=== PATIENT | male | born 1940 | race Caucasian/White ===

== ENCOUNTER 2017-05-25 12:15 | Outpatient (CLI) | payer MEDICARE, OTHER | END 2017-05-25 12:16 | disposition home or self-care (01) | LOC: DI 12:15 | PROVIDERS: ATTEND Family Medicine | DX: R60.0 Localized edema (principal) | CPT/HCPCS: 93306 ==

== ENCOUNTER 2017-07-05 11:57 | Outpatient (CLI) | payer MEDICARE, OTHER ==
[2017-07-05 19:58] LABS: CALCIUM 9.3 mg/dL (8.5-10.3); CREATININE 1.7 mg/dL (0.6-1.2); POTASSIUM 4.1 mmol/L (3.5-5.0)
== END 2017-07-05 11:58 | disposition home or self-care (01) ==
LOC: LAB.WCP 11:57
PROVIDERS: ATTEND Family Medicine
DX: E87.5 Hyperkalemia (principal); R60.0 Localized edema; E87.1 Hypo-osmolality and hyponatremia; I10 Essential (primary) hypertension; N28.9 Disorder of kidney and ureter, unspecified
CPT/HCPCS: 36415; 80048

== ENCOUNTER 2018-12-26 08:00 | Outpatient (CLI) | payer MEDICARE, OTHER ==
[2018-12-26 18:57] LABS: BASOPHILS % (AUTO) 0.9 %; EOSINOPHILS # (AUTO) 0.3 10^3/uL (0.0-0.7); EOSINOPHILS % (AUTO) 5.3 %; HGB - HEMOGLOBIN 13.1 g/dL (14.0-18.0); LYMPHOCYTES # (AUTO) 0.8 10^3/uL (1.5-3.5); MEAN CORPUSCULAR HEMOGLOBIN 33.1 pg (27.0-31.0); MEAN CORPUSCULAR HGB CONC 33.6 g/dL (32.0-36.0); MEAN CORPUSCULAR VOLUME 98.5 fL (80.0-94.0); MONOCYTES # (AUTO) 0.8 10^3/uL (0.0-1.0); NEUTROPHILS # (AUTO) 3.5 10^3/uL (1.5-6.6); NEUTROPHILS % (AUTO) 65.8 %; PLT - PLATELET COUNT 149 10^3/uL (130-450); RED BLOOD COUNT 3.97 10^6/uL (4.70-6.10); RED CELL DISTRIBUTION WIDTH 14.3 % (12.0-15.0); WHITE BLOOD COUNT 5.4 x10^3/uL (4.8-10.8)
[2018-12-26 19:11] LABS: BILIRUBIN,URINE NEGATIVE (NEGATIVE); GLUCOSE, URINE (UA) NEGATIVE (NEGATIVE); KETONES,URINE (UA) NEGATIVE (NEGATIVE); LEUKOCYTE ESTERASE, URINE NEGATIVE (NEGATIVE); NITRITE,URINE POSITIVE (NEGATIVE); OCCULT BLOOD,URINE NEGATIVE (NEGATIVE); PROTEIN,URINE NEGATIVE (NEGATIVE); UROBILINOGEN,URINE 0.2 (NORMAL) E.U./dL (NORMAL)
[2018-12-26 19:12] LABS: ALBUMIN 3.7 g/dL (3.2-5.5); ALBUMIN/GLOBULIN RATIO 1.2 (1.0-2.2); ALKALINE PHOSPHATASE 48 IU/L (42-121); ALT ALANINE AMINOTRANSFERASE 22 IU/L (10-60); AST ASPARTATE AMINOTRANSFERASE 25 IU/L (10-42); BILIRUBIN,TOTAL 0.8 mg/dL (0.2-1.0); BUN - BLOOD UREA NITROGEN 21 mg/dL (6-20); CALCIUM 9.1 mg/dL (8.5-10.3); CARBON DIOXIDE - CO2 23 mmol/L (21-32); CHLORIDE 101 mmol/L (101-111); CHOL/HDL RATIO 3.1 (<5.0); CHOLESTEROL 107 mg/dL; CREATININE 1.1 mg/dL (0.6-1.2); GFR - MDRD 65 (>89); GLUCOSE 107 mg/dL (70-100); HDL CHOLESTEROL 34 mg/dL; LDL CHOLESTEROL,CALCULATED 41 mg/dL; LDL/HDL RATIO 1.2 (<3.6); SODIUM 133 mmol/L (135-145); TOTAL PROTEIN 6.9 g/dL (6.7-8.2); VLDL CHOLESTEROL 32 mg/dL
[2018-12-26 19:39] LABS: BACTERIA,URINE Few /HPF (None Seen); CLARITY,URINE CLEAR (CLEAR); RBC,URINE 0-5 /HPF (0-5); SQUAMOUS EPITHELIAL CELL,UR RARE Squamous (<= Few)
== END 2018-12-26 23:59 | disposition home or self-care (01) ==
LOC: LAB.WCP 08:00
PROVIDERS: ATTEND Family Medicine
DX: I10 Essential (primary) hypertension (principal); N28.9 Disorder of kidney and ureter, unspecified; E78.5 Hyperlipidemia, unspecified; R31.9 Hematuria, unspecified
CPT/HCPCS: 36415; 80053; 80061; 81001; 81003; 83721; 84443; 85025; 87086; 87181

== ENCOUNTER 2019-03-19 11:21 | Outpatient (CLI) | payer MEDICARE, OTHER ==
[2019-03-19 18:51] LABS: BASOPHILS # (AUTO) 0.1 10^3/uL (0.0-0.1); BASOPHILS % (AUTO) 0.9 %; EOSINOPHILS # (AUTO) 0.2 10^3/uL (0.0-0.7); EOSINOPHILS % (AUTO) 2.7 %; HGB - HEMOGLOBIN 13.8 g/dL (14.0-18.0); LYMPHOCYTES # (AUTO) 0.8 10^3/uL (1.5-3.5); LYMPHOCYTES % (AUTO) 13.6 %; MEAN CORPUSCULAR HEMOGLOBIN 32.8 pg (27.0-31.0); MEAN CORPUSCULAR HGB CONC 33.7 g/dL (32.0-36.0); MEAN CORPUSCULAR VOLUME 97.4 fL (80.0-94.0); MEAN PLATELET VOLUME 9.4 fL (7.4-11.4); MONOCYTES # (AUTO) 0.6 10^3/uL (0.0-1.0); MONOCYTES % (AUTO) 10.3 %; NEUTROPHILS # (AUTO) 4.4 10^3/uL (1.5-6.6); NEUTROPHILS % (AUTO) 72.5 %; PLT - PLATELET COUNT 135 10^3/uL (130-450); RED BLOOD COUNT 4.22 10^6/uL (4.70-6.10); RED CELL DISTRIBUTION WIDTH 13.4 % (12.0-15.0); WHITE BLOOD COUNT 6.1 x10^3/uL (4.8-10.8)
[2019-03-19 18:57] LABS: ALBUMIN 4.2 g/dL (3.2-5.5); ALBUMIN/GLOBULIN RATIO 1.4 (1.0-2.2); CALCIUM 9.5 mg/dL (8.5-10.3); CREATININE 1.2 mg/dL (0.6-1.2); TOTAL PROTEIN 7.2 g/dL (6.7-8.2)
== END 2019-03-19 11:22 | disposition home or self-care (01) ==
LOC: LAB.WCP 11:21
PROVIDERS: ATTEND Physician Assistant
DX: E87.5 Hyperkalemia (principal); N39.0 Urinary tract infection, site not specified
CPT/HCPCS: 36415; 80053; 85025; 87086; 87181

== ENCOUNTER 2019-05-10 17:49 | Emergency (ER) | payer MEDICARE, OTHER ==
[2019-05-10] MEDS ORDERED: SODIUM CHLORIDE 0.9% 1,000 ML IV ONE (18:49)
[2019-05-10 19:04] LABS: BILIRUBIN,URINE NEGATIVE (NEGATIVE); CLARITY,URINE HAZY (CLEAR); GLUCOSE, URINE (UA) NEGATIVE (NEGATIVE); KETONES,URINE (UA) NEGATIVE (NEGATIVE); LEUKOCYTE ESTERASE, URINE MODERATE (NEGATIVE); NITRITE,URINE POSITIVE (NEGATIVE); OCCULT BLOOD,URINE SMALL (NEGATIVE); PROTEIN,URINE TRACE mg/dL (NEGATIVE); UROBILINOGEN,URINE 0.2 (NORMAL) E.U./dL (NORMAL)
[2019-05-10] MEDS ORDERED: IOVERSOL 320 100 ML VIAL IVP ONE (19:04)
[2019-05-10] MEDS ORDERED: HYDROcod/ACETAM 10 MG/325 MG TABLET PO STA (19:06)
[2019-05-10 19:16] LABS: BACTERIA,URINE Many /HPF (None Seen); RBC,URINE 0-5 /HPF (0-5); SQUAMOUS EPITHELIAL CELL,UR NONE SEEN (<= Few)
[2019-05-10] MEDS ORDERED: cefTRIAXone 1 GM in SODIUM CHLORIDE 0.9% MINIBAG 100 ML IV STA (19:26)
[2019-05-10 19:30] LABS: BASOPHILS # (AUTO) 0.1 10^3/uL (0.0-0.1); BASOPHILS % (AUTO) 0.5 %; EOSINOPHILS # (AUTO) 0.1 10^3/uL (0.0-0.7); EOSINOPHILS % (AUTO) 1.3 %; HGB - HEMOGLOBIN 14.1 g/dL (14.0-18.0); LYMPHOCYTES # (AUTO) 0.6 10^3/uL (1.5-3.5); LYMPHOCYTES % (AUTO) 5.8 %; MEAN CORPUSCULAR HEMOGLOBIN 32.5 pg (27.0-31.0); MEAN CORPUSCULAR HGB CONC 34.1 g/dL (32.0-36.0); MEAN CORPUSCULAR VOLUME 95.3 fL (80.0-94.0); MEAN PLATELET VOLUME 7.6 fL (7.4-11.4); NEUTROPHILS # (AUTO) 8.9 10^3/uL (1.5-6.6); NEUTROPHILS % (AUTO) 83.4 %; PLT - PLATELET COUNT 146 10^3/uL (130-450); RED BLOOD COUNT 4.33 10^6/uL (4.70-6.10); RED CELL DISTRIBUTION WIDTH 13.8 % (12.0-15.0); WHITE BLOOD COUNT 10.7 x10^3/uL (4.8-10.8)
[2019-05-10 19:48] LABS: ALBUMIN 4.2 g/dL (3.2-5.5); ALBUMIN/GLOBULIN RATIO 1.3 (1.0-2.2); BILIRUBIN,TOTAL 0.8 mg/dL (0.2-1.0); CALCIUM 9.2 mg/dL (8.5-10.3); TOTAL PROTEIN 7.5 g/dL (6.7-8.2)
[2019-05-10] MEDS ORDERED: ONDANSETRON 4 MG/2 ML VIAL IVP STA (20:06)
[2019-05-10 20:08] LABS: CREATININE 1.3 mg/dL (0.6-1.2)
--- NOTE | 2019-05-10 20:49 | CT Report ---
Reason: right flank pain Procedure Date: 05/10/2019 Accession Number: [id number] / [id number] Procedure: CT - Abdomen/Pelvis WO CPT Code: FULL RESULT: EXAM: CT ABDOMEN AND PELVIS (CT KUB) EXAM DATE: 05/10/2019 07:44 PM. CLINICAL HISTORY: Right flank pain. COMPARISONS: ABDOMEN/PELVIS W/O 06/14/2015 7:20 PM. TECHNIQUE: Routine axial helical CT imaging was performed through the abdomen and pelvis without IV contrast. Reconstructions: Coronal and sagittal. In accordance with CT protocol optimization, one or more of the following dose reduction techniques were utilized for this exam: automated exposure control, adjustment of mA and/or KV based on patient size, or use of iterative reconstructive technique. FINDINGS: Lung Bases: Linear opacities present about the right greater than left lung bases increased since last exam suggesting chronic scarring or possibly atelectasis. The lungs appear hyperinflated with narrowing of the mediastinum. No acute opacities identified. Right Kidney/Ureter: New acute moderate right hydronephrosis and hydroureter present with acute perinephric edema. The renal pelvis is now dilated to 4.1 cm. No intrarenal or ureteral calculi identified. Some mucosal thickening present about the ureter as well. Left Kidney/Ureter: The left kidney demonstrates mild hydronephrosis and hydroureter diffusely through the distal ureter also increased since last exam. The renal pelvis is dilated to 1.9 cm from 1.3 cm previously. Mild perinephric edema slightly increased. Several renal cysts are likely present including a hyperdense focus about the lower pole measuring 30 HU. Other Solid Organs: The liver, spleen, and adrenal glands are unremarkable. The pancreatic tail is either absent or poorly formed. The proximal to mid pancreas is within normal limits without ductal dilatation. Gallbladder/Bile Ducts: Several small gallbladder stones are present increased since last exam. No evidence for acute cholecystitis or biliary obstruction. Peritoneal Cavity: Diffuse colonic diverticulosis present. No bowel obstruction or acute inflammatory process evident. No free fluid or free air evident. An ileal conduit is present in the right lower quadrant with loops measuring up to 3.1 cm increased from 2.2 cm on prior exam. A focal stricture is not clearly identified however. Pelvic Organs: The bladder is surgically absent as before. Surgical anastomoses present in the lower pelvis. Multiple pelvic sidewall surgical clips present. No adenopathy or mass lesion clearly identified. Vasculature: Unremarkable. Other: Posterior spinal fusion hardware spans the L4-S1 level. L2 level degenerative disk disease present. No bony lesion or fracture evident. IMPRESSION: 1. New moderate right and mild left hydronephrosis and hydroureter extending to the right lower quadrant ileal conduit though no obstructing stone or mass clearly identified. The ileal conduit is slightly more prominent through the urostomy site compared to last exam but a focal stricture is not clearly identified. 2. Diffuse colonic diverticulosis without evidence of diverticulitis or bowel obstruction. 3. Status post cystectomy with extensive postsurgical changes in the pelvis. No mass or adenopathy appreciated. RADIA
[2019-05-10] MEDS ORDERED: HYDROcod/ACETAM 5/325 MG TABLET PO STA (22:09)
--- NOTE | 2019-05-10 22:11 | ED Physician Documentation ---
PD HPI ABD PAIN - Stated complaint Stated Complaint: RT SIDE PX/NAUSEA - Chief complaint Chief Complaint: Abd Pain - History obtained from History obtained from: Patient, Family - History of Present Illness Timing - onset: How many days ago (2) Timing - duration: Days Timing - details: Gradual onset Quality: Aching, Sharp, Pain Location: Suprapubic, Other (Right flank) Radiation: Right flank Improved by: Meds (vicodin) Worsened by: Moving, Palpation Associated symptoms: No: Fever, Nausea, Vomiting, Hematemesis, Diarrhea, Dysuria, Hematuria, Chest pain, Dizzy, Near syncope / syncope Similar symptoms before: Diagnosis (similar to prior UTIs) Recently seen: Clinic - Treatment prior to arrival Treatment prior to arrival: vicodin - Additional information Additional information: 79 y/o pt with hx of ileoconduit Review of Systems Ten Systems: 10 systems reviewed and negative Constitutional: reports: Fatigue. denies: Fever, Chills Cardiac: denies: Chest pain / pressure Respiratory: denies: Dyspnea GI: reports: Abdominal Pain, Nausea. denies: Vomiting Skin: reports: Reviewed and negative Musculoskeletal: reports: Back pain Neurologic: reports: Generalized weakness Immunocompromised: reports: Reviewed and negative PD PAST MEDICAL HISTORY - Past Medical History Cardiovascular: Hypertension Respiratory: None Neuro: None Endocrine/Autoimmune: None GI: Chronic constipation, Diverticulitis : Renal insuffiency, Other HEENT: None Musculoskeletal: Osteoarthritis, Chronic back pain Derm: Other Other Past Medical History: right urostomy - Past Surgical History Past Surgical History: Yes General: Bowel surgery Ortho: Spine surgery Derm: Skin cancer surgery - Present Medications Home Medications: Ambulatory Orders Medication Instructions Recorded Confirmed Atenolol 100 mg PO DAILY 04/16/15 06/04/16 Atorvastatin [Lipitor] 20 mg PO QPM 04/16/15 06/04/16 Hydrocodone/Acetaminophen [[place] 1 each PO Q6H PRN #15 tablet 06/04/16 5-325 Tablet] Amlodipine Besylate 1 tab DAILY 05/10/19 05/10/19 Fluticasone [Flonase] 1 spray DAILY 05/10/19 05/10/19 Furosemide [Lasix] 20 mg DAILY 05/10/19 05/10/19 Lidocaine 1 each TP BID 05/10/19 05/10/19 Sennosides [Senna Lax] 2 tab BID 05/10/19 05/10/19 - Allergies Allergies/Adverse Reactions: Allergies Allergy/AdvReac Type Severity Reaction Status Date / Time hydralazine Allergy Unknown Verified 05/10/19 18:49 oxycodone Allergy Unknown Verified 05/10/19 18:49 diphenhydramine HCl * AdvReac Hallucinati Verified 05/10/19 18:49 [From Benadryl] ons morphine AdvReac Hallucinati Verified 05/10/19 18:49 ons - Social History Does the pt smoke?: No Smoking Status: Never smoker Does the pt drink ETOH?: Yes Does the pt have substance abuse?: No - Immunizations Immunizations are current?: Yes - POLST Patient has POLST: No PD ED PE NORMAL - Vitals Vital signs reviewed: Yes - General General: Alert and oriented X 3, No acute distress, Other (appears uncomfortable ) - HEENT HEENT: Atraumatic, Moist mucous membranes, Pharynx benign - Neck Neck: Supple, no meningeal sign, No JVD - Cardiac Cardiac: RRR, No murmur, No gallop, No rub, Strong equal pulses - Respiratory Respiratory: No respiratory distress, Clear bilaterally - Abdomen Abdomen: Soft, Non distended, Other (Right flank tenderness and diffuse mid abdominal tenderness ) - Male Male : Deferred - Rectal Rectal: Deferred - Back Back: Other (right CVA tenderness that is moderate ) - Derm Derm: Normal color, No rash - Extremities Extremities: No deformity, Other (LLE edema pt reports is chronic ) - Neuro Neuro: Alert and oriented X 3 Eye Opening: Spontaneous Motor: Obeys Commands Verbal: Oriented GCS Score: 15 - Psych Psych: Normal mood, Normal affect PD ED PE EXPANDED - Abdomen Abdomen: Other (ileostomy bag in place iwth urine in the bag which is clear, nonbloody. stoma is patent) Results - Vitals Vitals: Vital Signs - 24 hr 05/10/19 05/10/19 05/10/19 17:59 20:03 21:43 Temperature 36.6 C 36.9 C 38.1 C H Heart Rate 87 98 100 Respiratory 18 20 18 Rate Blood Pressure 161/78 H 146/76 H 146/70 H O2 Saturation 97 95 93 Oxygen O2 Source Room air - Labs Labs: Laboratory Tests 05/10/19 05/10/19 05/10/19 18:30 19:23 19:23 WBC 10.7 RBC 4.33 L Hgb 14.1 Hct 41.3 L MCV 95.3 H MCH 32.5 H MCHC 34.1 RDW 13.8 Plt Count 146 MPV 7.6 Neut # (Auto) 8.9 H Lymph # (Auto) 0.6 L [place] # (Auto) 1.0 Eos # (Auto) 0.1 Baso # (Auto) 0.1 Absolute Nucleated RBC 0.00 Nucleated RBC % 0.0 Sodium 135 Potassium 3.6 Chloride 101 Carbon Dioxide 19 L Anion Gap 15.0 H BUN 20 Creatinine 1.3 H Estimated GFR (MDRD) 53 L Glucose 109 H Calcium 9.2 Total Bilirubin 0.8 AST 25 ALT 18 Alkaline Phosphatase 62 Total Protein 7.5 Albumin 4.2 Globulin 3.3 Albumin/Globulin Ratio 1.3 Lipase 34 Urine Color YELLOW Urine Clarity HAZY Urine pH 6.0 Ur Specific [place] <=1.005 Urine Protein TRACE Urine Glucose (UA) NEGATIVE Urine Ketones NEGATIVE Urine Occult Blood SMALL H Urine Nitrite POSITIVE H Urine Bilirubin NEGATIVE Urine Urobilinogen 0.2 (NORMAL) Ur Leukocyte Esterase MODERATE H Urine RBC 0-5 Urine WBC >25 H Ur Squamous Epith Cells NONE SEEN Urine Bacteria Many H Ur Microscopic Review INDICATED Urine Culture Comments INDICATED PD MEDICAL DECISION MAKING - ED course Complexity details: reviewed results, re-evaluated patient, considered differential, d/w patient, d/w family ED course: ddx- UTI, pyelonephritis, hydronephrosis, obstructed ileostomy/ileoconduit, sepsis, perinephric abscess. 79 y/o with hx of bladder cancer, ileoconduit and ileostomy in place. Pt reports severe pain, general weakness, unable to get around the house. He has a UTI on CT with perinephric edema, hydroneprhsois, no obvious obstruction (stoma patent on my exam). Consulted Urology at [facility] who feel pt can be managed with IV antibiotics but hospitalist at [facility] feels pt needs Urological consultation available in case of any worsening. Pt was given ceftriaxone, fluids, analgesicc here and will need admission. Given refusal by Dr. Yang here pt transferred to [facility] for admission by Dr. Jose Juan Givens. Departure - Departure Disposition: 01 Home, Self Care Clinical Impression: Pyelonephritis, Pyelonephritis, acute Urinary tract infection Qualifiers: Urinary tract infection type: acute pyelonephritis Qualified Code(s): N10 - Acute pyelonephritis Hydronephrosis Qualifiers: Hydronephrosis type: unspecified Qualified Code(s): N13.30 - Unspecified hydronephrosis Condition: Fair Record reviewed to determine appropriate education?: Yes
[2019-05-11] MEDS ORDERED: ONDANSETRON 4 MG/2 ML VIAL IVP STA (00:38)
[2019-05-11 00:49] VITALS: BP 130/68
== END 2019-05-11 01:03 | disposition short-term general hospital (02) ==
LOC: ED 17:49
DX: N10 Acute pyelonephritis (principal); N13.30 Unspecified hydronephrosis; Z93.6 Other artificial openings of urinary tract status; Z85.51 Personal history of malignant neoplasm of bladder; I10 Essential (primary) hypertension; Z87.19 Personal history of other diseases of the digestive system
CPT/HCPCS: 36415; 74176; 80053; 81001; 83690; 85025; 87077; 87086; 87181; 96365; 96375; 96376; 99284; A9270; 81003

== ENCOUNTER 2019-07-03 14:00 | Outpatient (CLI) | payer MEDICARE, OTHER | END 2019-07-03 23:59 | disposition home or self-care (01) | LOC: LAB.R 14:00 | PROVIDERS: ATTEND Physician Assistant Medical | DX: R10.32 Left lower quadrant pain (principal) | CPT/HCPCS: 87086; 87181 ==

== ENCOUNTER 2019-07-19 15:30 | Outpatient (CLI) | payer MEDICARE, OTHER ==
[2019-07-19 19:00] LABS: ALBUMIN 4.1 g/dL (3.2-5.5); ALBUMIN/GLOBULIN RATIO 1.2 (1.0-2.2); BILIRUBIN,TOTAL 0.6 mg/dL (0.2-1.0); CALCIUM 9.2 mg/dL (8.5-10.3); CREATININE 1.4 mg/dL (0.6-1.2); TOTAL PROTEIN 7.5 g/dL (6.7-8.2)
== END 2019-07-19 23:59 ==
LOC: LAB.N 15:30
PROVIDERS: ATTEND Family Medicine
DX: E87.1 Hypo-osmolality and hyponatremia (principal)
CPT/HCPCS: 36415; 80053

== ENCOUNTER 2019-08-20 11:51 | Outpatient (CLI) | payer MEDICARE, OTHER | END 2019-08-20 11:52 | disposition short-term general hospital (02) | LOC: EMS 11:51 | PROVIDERS: ATTEND Surgery | DX: R07.9 Chest pain, unspecified (principal) | CPT/HCPCS: A0425; A0427 ==

== ENCOUNTER 2019-08-29 15:31 | Outpatient (CLI) | payer MEDICARE, OTHER ==
[2019-08-29 18:42] LABS: MEAN CORPUSCULAR HEMOGLOBIN 32.5 pg (27.0-31.0); MEAN CORPUSCULAR HGB CONC 34.4 g/dL (32.0-36.0); MEAN CORPUSCULAR VOLUME 94.4 fL (80.0-94.0); MEAN PLATELET VOLUME 10.2 fL (7.4-11.4); RED BLOOD COUNT 4.31 10^6/uL (4.70-6.10); WHITE BLOOD COUNT 8.3 x10^3/uL (4.8-10.8)
[2019-08-29 18:59] LABS: ALBUMIN 4.3 g/dL (3.2-5.5); ALBUMIN/GLOBULIN RATIO 1.3 (1.0-2.2); ALKALINE PHOSPHATASE 38 IU/L (42-121); ALT ALANINE AMINOTRANSFERASE 32 IU/L (10-60); AST ASPARTATE AMINOTRANSFERASE 29 IU/L (10-42); BILIRUBIN,TOTAL 0.6 mg/dL (0.2-1.0); BUN - BLOOD UREA NITROGEN 29 mg/dL (6-20); CARBON DIOXIDE - CO2 24 mmol/L (21-32); CHLORIDE 100 mmol/L (101-111); CREATININE 1.1 mg/dL (0.6-1.2); GFR - MDRD 65 (>89); GLUCOSE 78 mg/dL (70-100); SODIUM 133 mmol/L (135-145); TOTAL PROTEIN 7.5 g/dL (6.7-8.2); URIC ACID 5.8 mg/dL (2.6-7.2)
[2019-08-29 19:05] LABS: CRP - C-REACTIVE PROTEIN < 1.0 mg/dL (0-1.0)
[2019-08-29 19:15] LABS: RHEUMATOID FACTOR NEGATIVE (Negative)
[2019-09-03 11:26] LABS: ANA SCREEN NEGATIVE (NEGATIVE)
== END 2019-08-29 23:59 | disposition home or self-care (01) ==
LOC: LAB.N 15:31
PROVIDERS: ATTEND Family Medicine
DX: M25.572 Pain in left ankle and joints of left foot (principal); E87.1 Hypo-osmolality and hyponatremia
CPT/HCPCS: 36415; 80053; 84550; 85027; 85651; 86038; 86140; 86200; 86430

== ENCOUNTER 2019-08-29 15:33 | Outpatient (CLI) | payer MEDICARE, OTHER ==
--- NOTE | 2019-08-29 15:43 | XRAY Report ---
Reason: L ankle pain Procedure Date: 08/29/2019 Accession Number: [id number] / [id number] Procedure: XRN - Ankle 2 View LT CPT Code: FULL RESULT: EXAM: LEFT ANKLE RADIOGRAPHY EXAM DATE: 08/29/2019 03:29 PM. CLINICAL HISTORY: Left ankle pain. COMPARISON: None. TECHNIQUE: 2 views. FINDINGS: Bones: An AP and lateral view were obtained. No oblique view was taken. No definite fracture allowing for bony overlap. See below recommendations. Severe hallux valgus deformity. Intertarsal osteoarthritis of the mid foot seen on lateral view. Moderate posterior calcaneal bone spur. Joints: Normal. No effusion. No subluxations. The ankle mortise is normally aligned. Soft Tissues: Normal. No soft tissue swelling. IMPRESSION: No definite fracture. See above comments. If the patient has continued symptoms, recommend short-term follow-up 3 view ankle series. RADIA
== END 2019-08-29 15:34 | disposition home or self-care (01) ==
LOC: DI.N 15:33
PROVIDERS: ATTEND Family Medicine
DX: M25.572 Pain in left ankle and joints of left foot (principal); M77.32 Calcaneal spur, left foot; M20.12 Hallux valgus (acquired), left foot; M19.072 Primary osteoarthritis, left ankle and foot; E87.1 Hypo-osmolality and hyponatremia
CPT/HCPCS: 36415; 80053; 84550; 85027; 85651; 86038; 86140; 86200; 86430

== ENCOUNTER 2019-09-03 10:19 | Outpatient (CLI) | payer MEDICARE, OTHER | END 2019-09-03 23:59 | disposition short-term general hospital (02) | LOC: EMS 10:19 | PROVIDERS: ATTEND Surgery | DX: R10.30 Lower abdominal pain, unspecified (principal); R51 Headache | CPT/HCPCS: A0425; A0429; A0888 ==

== ENCOUNTER 2019-09-05 11:55 | Outpatient (CLI) | payer MEDICARE, OTHER ==
[2019-09-05 19:21] LABS: THYROID STIMULATING HORMONE 0.38 uIU/mL (0.34-5.60)
[2019-09-05 19:24] LABS: FREE T4 (FREE THYROXINE) 1.21 ng/dL (0.58-1.64)
== END 2019-09-05 23:59 | disposition home or self-care (01) ==
LOC: LAB.N 11:55
PROVIDERS: ATTEND Family Medicine
DX: E03.9 Hypothyroidism, unspecified (principal)
CPT/HCPCS: 36415; 84439; 84443; 84481; 86800

== ENCOUNTER 2019-09-11 08:52 | Outpatient (CLI) | payer MEDICARE, OTHER | END 2019-09-11 08:53 | disposition critical access hospital (66) | LOC: EMS 08:52 | PROVIDERS: ATTEND Surgery | DX: R41.82 Altered mental status, unspecified (principal); R53.1 Weakness; R44.3 Hallucinations, unspecified | CPT/HCPCS: A0425; A0429 ==

== ENCOUNTER 2019-09-11 09:11 | Inpatient (IN) | payer MEDICARE, OTHER ==
--- NOTE | 2019-09-11 09:17 | ED Physician Documentation ---
History of Present Illness - Stated complaint Stated Complaint: CONFUSED - Additonal information Additional information: This is a 79 with history of bladder cancer status post ileal conduit and ileostomy, with recurrent UTIs, who is brought in by EMS from home because his states that he has been weak and slightly confused over the last several days. He was diagnosed with a UTI, and was transferred to [facility] in the last month for treatment with urology consultation, he was discharged home and reportedly had improvement, however over the last several days he has had some hallucinations of bedbugs, and decision was has had generalized weakness. Patient denies chest pain, shortness of breath, or abdominal pain. He complains that he feels like he has bedbug bites, and that he wants his thyroid checked. No fever. Review of Systems Constitutional: denies: Fever Ears: denies: Ear pain Nose: denies: Rhinorrhea / runny nose Throat: denies: Oral lesions / sores Cardiac: denies: Chest pain / pressure Respiratory: denies: Dyspnea GI: denies: Abdominal Pain : reports: Other (Hx ileostomy, bladder cancer) Neurologic: reports: Generalized weakness Immunocompromised: denies: Chemotherapy PD PAST MEDICAL HISTORY - Past Medical History Cardiovascular: Hypertension Respiratory: None Neuro: None Endocrine/Autoimmune: None GI: Chronic constipation, Diverticulitis : Renal insuffiency, Other HEENT: None Musculoskeletal: Osteoarthritis, Chronic back pain Derm: Other - Past Surgical History Past Surgical History: Yes General: Bowel surgery Ortho: Spine surgery Derm: Skin cancer surgery - Present Medications Home Medications: Ambulatory Orders Medication Instructions Recorded Confirmed Atorvastatin [Lipitor] 20 mg PO QPM 04/16/15 09/11/19 Fluticasone [Flonase] 1 spray [place] DAILY PRN 05/10/19 09/12/19 Sennosides [Senna Lax] 8.6 mg PO BID PRN 05/10/19 09/12/19 ALPRAZolam [Alprazolam] 1 mg PO QPM 09/11/19 09/11/19 Metoprolol Succinate [Toprol Xl] 100 mg PO QPM 09/11/19 09/12/19 Ondansetron [Ondansetron Odt] 8 mg TL Q6H PRN 09/11/19 09/11/19 cloNIDine [Catapres] 0.1 mg PO BID 09/11/19 09/11/19 - Allergies Allergies/Adverse Reactions: Allergies Allergy/AdvReac Type Severity Reaction Status Date / Time hydralazine Allergy Unknown Verified 09/11/19 09:31 oxycodone Allergy Unknown Verified 09/11/19 09:31 diphenhydramine HCl * AdvReac Hallucinati Verified 09/11/19 09:31 [From Benadryl] ons morphine AdvReac Hallucinati Verified 09/11/19 09:31 ons - Social History Does the pt smoke?: No Smoking Status: Never smoker Does the pt drink ETOH?: Yes Does the pt have substance abuse?: No - Immunizations Immunizations are current?: Yes - POLST Patient has POLST: No PD ED PE NORMAL - Vitals Vital signs reviewed: Yes - General General: Other (Alert, conversant, oriented to self, place, and general event) - HEENT HEENT: PERRL, Other (Mucous membranes tacky) - Neck Neck: Supple, no meningeal sign - Cardiac Cardiac: RRR, No murmur - Respiratory Respiratory: Clear bilaterally - Abdomen Abdomen: Non distended, Other (Ileostomy in place over right abdomen, ostomy appears pink and healthy, there is pale yellow urine draining into appliance. No abdominal tenderness.) - Back Back: No spinal TTP, Other (No sores or lesions on back or buttocks.) - Derm Derm: Warm and dry - Extremities Extremities: No deformity - Neuro Neuro: Alert and oriented X 3, inspector integrated circuits 2-12 intact, No motor deficit, No sensory deficit, Normal speech Results - Vitals Vitals: Vital Signs - 24 hr 09/12/19 09/12/19 13:15 16:00 Temperature 36.7 C Heart Rate [ 95 Activity] Heart Rate [ 76 Brachial] Heart Rate [ 81 Supine] Respiratory 16 Rate Blood Pressure 155/65 H [Activity] Blood Pressure 141/71 H [Right Brachial artery] Blood Pressure 138/58 H [Supine] O2 Saturation 98 Oxygen O2 Source Room air - EKG (time done) 10:26 Other comments: Other comments (Rate 79, rhythm sinus, first-degree AV block, there is no ST segment elevation or depression. There is T wave flattening in 1 and aVL.) - Labs Labs: Microbiology 09/11/19 10:30 Urine Culture - Preliminary Urine,Catheterized Laboratory Tests 09/11/19 09/11/19 09/11/19 10:13 10:13 10:13 WBC 7.1 RBC 4.71 Hgb 15.1 Hct 45.5 MCV 96.6 H MCH 32.1 H MCHC 33.2 RDW 14.4 Plt Count 133 MPV 9.4 Neut # (Auto) 5.2 Lymph # (Auto) 0.9 L [place] # (Auto) 0.8 Eos # (Auto) 0.1 Baso # (Auto) 0.0 Absolute Nucleated RBC 0.00 Nucleated RBC % 0.0 Sodium 136 Potassium 4.7 Chloride 98 L Carbon Dioxide 26 Anion Gap 12.0 BUN 19 Creatinine 1.1 Estimated GFR (MDRD) 65 L Glucose 108 H Calcium 9.8 Magnesium Total Bilirubin 0.7 AST 24 ALT 20 Alkaline Phosphatase 38 L Troponin I High Sens 6.7 B-Natriuretic Peptide Total Protein 7.4 Albumin 4.0 Globulin 3.4 Albumin/Globulin Ratio 1.2 Lipase 39 TSH Free T4 Urine Color Urine Clarity Urine pH Ur Specific [place] Urine Protein Urine Glucose (UA) Urine Ketones Urine Occult Blood Urine Nitrite Urine Bilirubin Urine Urobilinogen Ur Leukocyte Esterase Urine RBC Urine WBC Ur Squamous Epith Cells Urine Bacteria Urine Yeast Ur Microscopic Review Urine Culture Comments Urine Opiates Screen Ur Oxycodone Screen Urine Methadone Screen Ur Propoxyphene Screen Ur Barbiturates Screen Ur Tricyclics Screen Ur Phencyclidine Scrn Ur Amphetamine Screen U Methamphetamines Scrn U Benzodiazepines Scrn Urine Cocaine Screen U Cannabinoids Screen Ethyl Alcohol < 5.0 09/11/19 09/11/19 09/11/19 10:13 10:13 10:30 WBC RBC Hgb Hct MCV MCH MCHC RDW Plt Count MPV Neut # (Auto) Lymph # (Auto) [place] # (Auto) Eos # (Auto) Baso # (Auto) Absolute Nucleated RBC Nucleated RBC % Sodium Potassium Chloride Carbon Dioxide Anion Gap BUN Creatinine Estimated GFR (MDRD) Glucose Calcium Magnesium Total Bilirubin AST ALT Alkaline Phosphatase Troponin I High Sens B-Natriuretic Peptide 58 Total Protein Albumin Globulin Albumin/Globulin Ratio Lipase TSH 0.24 L Free T4 Urine Color YELLOW Urine Clarity SL. CLOUDY Urine pH 7.0 Ur Specific [place] 1.010 Urine Protein NEGATIVE Urine Glucose (UA) NEGATIVE Urine Ketones NEGATIVE Urine Occult Blood NEGATIVE Urine Nitrite POSITIVE H Urine Bilirubin NEGATIVE Urine Urobilinogen 0.2 (NORMAL) Ur Leukocyte Esterase MODERATE H Urine RBC None Seen Urine WBC 11-25 H Ur Squamous Epith Cells RARE Squamous Urine Bacteria Few Urine Yeast PRESENT Ur Microscopic Review INDICATED Urine Culture Comments INDICATED Urine Opiates Screen NEGATIVE Ur Oxycodone Screen NEGATIVE Urine Methadone Screen NEGATIVE Ur Propoxyphene Screen NEGATIVE Ur Barbiturates Screen NEGATIVE Ur Tricyclics Screen NEGATIVE Ur Phencyclidine Scrn NEGATIVE Ur Amphetamine Screen NEGATIVE U Methamphetamines Scrn NEGATIVE U Benzodiazepines Scrn POSITIVE H Urine Cocaine Screen NEGATIVE U Cannabinoids Screen NEGATIVE Ethyl Alcohol 09/12/19 09/12/19 09/12/19 06:05 06:05 06:05 WBC 7.0 RBC 4.31 L Hgb 13.5 L Hct 40.2 L MCV 93.3 MCH 31.3 H MCHC 33.6 RDW 14.3 Plt Count 130 MPV 9.6 Neut # (Auto) 5.3 Lymph # (Auto) 0.8 L [place] # (Auto) 0.9 Eos # (Auto) 0.1 Baso # (Auto) 0.0 Absolute Nucleated RBC 0.00 Nucleated RBC % 0.0 Sodium 133 L Potassium 4.2 Chloride 98 L Carbon Dioxide 27 Anion Gap 8.0 BUN 17 Creatinine 1.1 Estimated GFR (MDRD) 65 L Glucose 109 H Calcium 9.3 Magnesium 1.9 Total Bilirubin AST ALT Alkaline Phosphatase Troponin I High Sens B-Natriuretic Peptide Total Protein Albumin Globulin Albumin/Globulin Ratio Lipase TSH Free T4 1.40 Urine Color Urine Clarity Urine pH Ur Specific [place] Urine Protein Urine Glucose (UA) Urine Ketones Urine Occult Blood Urine Nitrite Urine Bilirubin Urine Urobilinogen Ur Leukocyte Esterase Urine RBC Urine WBC Ur Squamous Epith Cells Urine Bacteria Urine Yeast Ur Microscopic Review Urine Culture Comments Urine Opiates Screen Ur Oxycodone Screen Urine Methadone Screen Ur Propoxyphene Screen Ur Barbiturates Screen Ur Tricyclics Screen Ur Phencyclidine Scrn Ur Amphetamine Screen U Methamphetamines Scrn U Benzodiazepines Scrn Urine Cocaine Screen U Cannabinoids Screen Ethyl Alcohol PD MEDICAL DECISION MAKING - ED course Complexity details: considered differential (UTI, pyelonephritis, delirium, pneumonia, electrolyte abnormality, ACS) ED course: On exam patient is able to answer questions but does have some delusional content such as pointing out bedbugs that are not visible. Labs are notable for a UTI, no leukocytosis. XR shows atelectasis and potential airspace disease, patient does not have a cough or fever and lungs are clear on my exam, making PNA less likely at this time. Troponin and EKG are not suggestive of ACS. Patient appears to have encephalopathy likely from UTI source. He does not have headache, head trauma, or symptoms to suggest CT is necessary at this time, and he and his tell me they do not want any more CTs at this time, it sounds like he had many CTs during his last inpatient stay. They also do not want to go to [facility]. Pt is agreeable for observation/admission here. He was given ceftriaxone and admitted to the hospital for further evaluation and treatment. Departure - Departure Disposition: ED Place in Observation Clinical Impression: Urinary tract infection Qualifiers: Urinary tract infection type: acute cystitis Hematuria presence: without hematuria Qualified Code(s): N30.00 - Acute cystitis without hematuria Condition: Stable Discharge Date/Time: 09/11/19 14:47
--- NOTE | 2019-09-11 10:10 | XRAY Report ---
Reason: generalized weakness Procedure Date: 09/11/2019 Accession Number: [id number] / [id number] Procedure: XR - Chest 1 View X-Ray CPT Code: 10105 FULL RESULT: EXAM: CHEST RADIOGRAPHY EXAM DATE: 09/11/2019 09:45 AM. CLINICAL HISTORY: Generalized weakness. COMPARISON: CHEST 1 VIEW 06/04/2016 7:08 AM. TECHNIQUE: 1 view. FINDINGS: Lungs/Pleura: Elongated and patchy right basilar opacity. Minimal elevation right hemidiaphragm. Mediastinum: Atherosclerotic aortic calcification. Other: None. IMPRESSION: Right basilar atelectasis and airspace disease. RADIA
[2019-09-11 10:23] LABS: BASOPHILS % (AUTO) 0.3 %; EOSINOPHILS # (AUTO) 0.1 10^3/uL (0.0-0.7); EOSINOPHILS % (AUTO) 0.7 %; HGB - HEMOGLOBIN 15.1 g/dL (14.0-18.0); LYMPHOCYTES # (AUTO) 0.9 10^3/uL (1.5-3.5); MEAN CORPUSCULAR HEMOGLOBIN 32.1 pg (27.0-31.0); MEAN CORPUSCULAR HGB CONC 33.2 g/dL (32.0-36.0); MEAN CORPUSCULAR VOLUME 96.6 fL (80.0-94.0); MEAN PLATELET VOLUME 9.4 fL (7.4-11.4); MONOCYTES # (AUTO) 0.8 10^3/uL (0.0-1.0); MONOCYTES % (AUTO) 11.5 %; NEUTROPHILS # (AUTO) 5.2 10^3/uL (1.5-6.6); NEUTROPHILS % (AUTO) 73.9 %; PLT - PLATELET COUNT 133 10^3/uL (130-450); RED BLOOD COUNT 4.71 10^6/uL (4.70-6.10); RED CELL DISTRIBUTION WIDTH 14.4 % (12.0-15.0); WHITE BLOOD COUNT 7.1 x10^3/uL (4.8-10.8)
[2019-09-11 10:32] LABS: ALBUMIN/GLOBULIN RATIO 1.2 (1.0-2.2); ALKALINE PHOSPHATASE 38 IU/L (42-121); ALT ALANINE AMINOTRANSFERASE 20 IU/L (10-60); AST ASPARTATE AMINOTRANSFERASE 24 IU/L (10-42); BILIRUBIN,TOTAL 0.7 mg/dL (0.2-1.0); BUN - BLOOD UREA NITROGEN 19 mg/dL (6-20); CALCIUM 9.8 mg/dL (8.5-10.3); CARBON DIOXIDE - CO2 26 mmol/L (21-32); CHLORIDE 98 mmol/L (101-111); CREATININE 1.1 mg/dL (0.6-1.2); GFR - MDRD 65 (>89); GLUCOSE 108 mg/dL (70-100); LIPASE 39 U/L (22-51); SODIUM 136 mmol/L (135-145); TOTAL PROTEIN 7.4 g/dL (6.7-8.2)
[2019-09-11 10:35] LABS: BILIRUBIN,URINE NEGATIVE (NEGATIVE); GLUCOSE, URINE (UA) NEGATIVE (NEGATIVE); KETONES,URINE (UA) NEGATIVE (NEGATIVE); LEUKOCYTE ESTERASE, URINE MODERATE (NEGATIVE); MUDS CUTOFF CONCENTRATIONS CUTOFF CONC BELOW:; NITRITE,URINE POSITIVE (NEGATIVE); OCCULT BLOOD,URINE NEGATIVE (NEGATIVE); PROTEIN,URINE NEGATIVE (NEGATIVE); UROBILINOGEN,URINE 0.2 (NORMAL) E.U./dL (NORMAL)
[2019-09-11 10:37] LABS: CLARITY,URINE SL. CLOUDY (CLEAR)
[2019-09-11] MEDS ORDERED: cefTRIAXone 1 GM in SODIUM CHLORIDE 0.9% MINIBAG 100 ML IV STA (10:47)
[2019-09-11 10:50] LABS: BACTERIA,URINE Few /HPF (None Seen); RBC,URINE None Seen /HPF (0-5); SQUAMOUS EPITHELIAL CELL,UR RARE Squamous (<= Few); YEAST,URINE PRESENT
[2019-09-11 10:51] LABS: AMPHETAMINE SCREEN,URINE NEGATIVE (NEGATIVE); BENZODIAZEPINES SCREEN, URINE POSITIVE (NEGATIVE); COCAINE SCREEN URINE NEGATIVE (NEGATIVE); METHADONE SCREEN, URINE NEGATIVE (NEGATIVE); METHAMPHETAMINES SCREEN, URINE NEGATIVE (NEGATIVE); OPIATE SCREEN, URINE NEGATIVE (NEGATIVE); OXYCODONE SCREEN, URINE NEGATIVE (NEGATIVE); PROPOXYPHENE SCREEN, URINE NEGATIVE (NEGATIVE); TRICYCLIC ANTIDEPRESSANT,URINE NEGATIVE (NEGATIVE)
[2019-09-11] MEDS ORDERED: ONDANSETRON 4 MG/2 ML VIAL IVP PRN (13:56)
[2019-09-11] MEDS ORDERED: SODIUM CHLORIDE FLUSH 0.9% 10 ML SYRINGE IVP PRN (13:56)
[2019-09-11] MEDS ORDERED: HYDROcod/ACETAM 10 MG/325 MG TABLET PO PRN (14:08)
[2019-09-11] MEDS ORDERED: hydrALAZINE INJ 20 MG/ML VIAL IVP PRN (15:26)
[2019-09-11] MEDS: cloNIDine 0.1 MG TABLET PO SCH ×2 (16:36→21:29)
[2019-09-11] MEDS: hydrALAZINE 10 MG TABLET PO SCH ×2 (16:36→21:29)
[2019-09-11] MEDS: SODIUM CHLORIDE FLUSH 0.9% 10 ML SYRINGE IVP SCH (16:42)
--- NOTE | 2019-09-11 17:46 | HISTORY & PHYSICAL EXAMINATION ---
Chief Complaint - Chief Complaint Chief Complaint: AMS and UTI History of Present Illness - History of Present Illness HPI Comment/Other: Mr. Redd is a 79-yrs old male with a medical history significant for prostate and bladder cancer status post ileal conduit and ileostomy, a partial colon resection in 2004, chronic constipation, HTN, CKD with recurrent UTIs, who is brought in by EMS from home because his states that he has been weakness and slightly confused over the last several days. Pt had recurrence of a UTI, and was treated in [place] in the last month with urology consultation, he was discharged home and reportedly had improvement. pt report " I do not like [place] at all, do not transfer to [place] again." Pt alert and oriented plus three, he know person, location and time, but he was reported over the last several days he has had some hallucinations of bedbugs. Patient denies abdominal pain or cramp, fever, chill, chest pain, shortness of breath. pt was found to have UTI in UA. pt was admitted in observation unit for further management. History - Past Medical History Cardiovascular: reports: Hypertension Respiratory: reports: None Neuro: reports: None Endocrine/Autoimmune: reports: None GI: reports: Chronic constipation, Diverticulitis : reports: Renal insuffiency, Other HEENT: reports: None Psych: reports: Depression, Anxiety, Claustrophobia Musculoskeletal: reports: Osteoarthritis, Chronic back pain Derm: reports: Other MRSA Hx?: No - Past Surgical History General: reports: Bowel surgery Ortho: reports: Spine surgery Derm: reports: Skin cancer surgery - Family & Social History Family History: Mother: , Father: Family History Comment/Other: pt report his mother from cancer at age 66, his father from heart attack. All his four brothers . Living arrangement: At home Living Situation: With spouse/s.o. Social History Notes: pt report he is living with in [place], his has surgery recently. He denies cigarette smoking, alcohol and drug abuse. - POLST Patient has POLST: No POLST Status: DNR Meds/Allgy - Home Medications Home Medications: Ambulatory Orders Medication Instructions Recorded Confirmed Atorvastatin [Lipitor] 20 mg PO QPM 04/16/15 09/11/19 Amlodipine Besylate 1 tab DAILY 05/10/19 05/10/19 Fluticasone [Flonase] 1 spray DAILY 05/10/19 05/10/19 Furosemide [Lasix] 20 mg DAILY 05/10/19 05/10/19 Lidocaine 1 each TP BID 05/10/19 05/10/19 Sennosides [Senna Lax] 2 tab BID 05/10/19 05/10/19 ALPRAZolam [Alprazolam] 1 mg PO QPM 09/11/19 09/11/19 Hydrocodone/Acetaminophen 1 each PO DAILY PRN 09/11/19 09/11/19 [Hydrocodon-Acetaminophn 10-325] Metoprolol Succinate [Toprol Xl] 50 mg PO DAILY 09/11/19 Metoprolol Succinate [Toprol Xl] 100 mg PO DAILY 09/11/19 Ondansetron [Ondansetron Odt] 8 mg TL Q6H PRN 09/11/19 09/11/19 cloNIDine [Catapres] 0.1 mg PO BID 09/11/19 09/11/19 hydrALAZINE [Apresoline] 10 mg PO BID 09/11/19 09/11/19 - Allergies Allergies/Adverse Reactions: Allergies Allergy/AdvReac Type Severity Reaction Status Date / Time hydralazine Allergy Unknown Verified 09/11/19 09:31 oxycodone Allergy Unknown Verified 09/11/19 09:31 diphenhydramine HCl * AdvReac Hallucinati Verified 09/11/19 09:31 [From Benadryl] ons morphine AdvReac Hallucinati Verified 09/11/19 09:31 ons Review of Systems - Constitutional Constitutional: denies: Fatigue, Fever, Chills, Malaise, Weakness, Poor appetite, Diaphoresis, Night sweats - Eyes Eyes: denies: Pain, Irritation, Amaurosis, Blurred vision, Spots in vision, Field loss, Vision loss, Dipolpia - Ears, Nose & Throat Ears, Nose & Throat: denies: Ear pain, Hearing loss, Hearing aids, Nasal pain, Nasal discharge, Nosebleeds, Nasal obstruction, Nasal congestion, Postnasal drainage, Dentures, Sore throat, Mouth lesions, Bleeding gums - Cardiovascular Cariovascular: denies: Irregular heart rate, Palpitations, Chest pain, Edema, Lightheadedness, Syncope, Exertional dyspnea, Decr. exercise tolerance - Respiratory Respiratory: denies: Cough, Sputum production, Wheezing, Snoring, Hemoptysis, Orthopnea, SOB at rest, SOB with exertion - Gastrointestinal Gastrointestinal: denies: Abdominal pain, Abdominal distention, Constipation, Diarrhea, Change in bowel habits, Rectal bleeding, Black stools, Bloody stools, Vomiting, Bile emesis, Efrem blood emesis, Coffee grounds emesis, Reflux/heartburn - Genitourinary Genitourinary: denies: Dysuria, Frequency, Urgency, Hematuria, Incontinence, Flank pain, Nocturia - Musculoskeletal Musculoskeletal: denies: Muscle pain, Back pain, Muscle aches, Stiffness, Limited range of motion, Muscle weakness, Gout, Joint pain - Integumentary Integumentary: denies: Rash, Pruritis, Lesions, Dryness, Lumps, Acne, Pigment changes, Nail changes - Neurological Neurological: denies: General weakness, Focal weakness, Headache, Dizziness, Numbness, Memory problems, Pre-existing deficit, Abnormal gait, Seizures, Incoordination, Slurred speech - Psychiatric Psychiatric: reports: Hallucinations. denies: Depression, Anxiety, Suicidal, Delusions, Homicidal - Endocrine Endocrine: denies: Polyuria, Polydypsia, Polyphagia, Intolerance to cold - Hematologic/Lymphatic Hematologic/Lymphatic: denies: Anemia, Bruising, Petechiae, Blood clots, Lympha denopathy, Bleeding tendencies Exam - Vital Signs Reviewed Vital Signs: Yes Vital Signs: Vital Signs x48h Temp Pulse Pulse Resp BP BP Pulse Ox 09/11/19 16:00 36.6 C 82 20 170/72 H 97 09/11/19 15:43 36.6 C 82 18 170/72 H 97 09/11/19 12:55 36.3 C L 79 18 169/80 H 98 09/11/19 11:38 36.3 C L 75 18 155/83 H 97 09/11/19 11:00 72 16 167/74 H 98 09/11/19 10:18 76 14 168/87 H 99 09/11/19 09:47 36.7 C 82 15 163/76 H 98 - Physical Exam General Appearance: positive: No acute distress, Alert. negative: Lethargic Eyes Bilateral: positive: Normal inspection, PERRL, No lid inflammation, Conjunctivae nml ENT: positive: ENT inspection nml, Pharynx nml, No signs of dehydration. negative: Purulent nasal drainage, Pharyngeal erythema, Oral lesions Neck: positive: Nml inspection, Thyroid nml, No JVD, Trachea midline. negative: Thyromegaly, Lymphadenopathy (R), Lymphadenopathy (L), Stiff neck, Sw elling/bruising, Tracheal deviation Respiratory: positive: Chest non-tender, No respiratory distress, Breath sounds nml. negative: Wheezes, Rales, Rhonchi Cardiovascular: positive: Regular rate & rhythm, No murmur, No gallop. negative: Irregularly irregular, Extrasystoles, Tachycardia, PMI displaced laterally, JVD present, Systolic murmur, Diastolic murmur Peripheral Pulses: positive: 2+ Abdomen: positive: Non-tender, No organomegaly, Nml bowel sounds, No distention. negative: Tenderness, Guarding, Rebound Back: positive: CVA tenderness (R), CVA tenderness (L). negative: Nml inspection Skin: positive: Color nml, No rash, Dry. negative: Cyanosis, Diaphoresis, Pallor Extremities: positive: Non-tender, Nml appearance. negative: Calf tenderness, Joint swelling, Freeman's sign/cords Neurologic/Psychiatric: positive: Oriented x3, Sensation nml, Mood/affect nml. negative: Weakness, Sensory loss, Facial droop, Slurred/abnml speech, Depressed mood/affect Conclusion/Plan - Problem List (1) Urinary tract infection Conclusion/Plan: pt has hx of multiple UTI, previous UA study indicate sensitivity to Rocephin treated with Rocephin followup UA culture. Qualifiers: Urinary tract infection type: acute cystitis Hematuria presence: without hematuria Qualified Code(s): N30.00 - Acute cystitis without hematuria (2) Altered mental status Conclusion/Plan: pt was reported he had psychosis issue, hallucination in ER. he seems to me he has clear mind, alert and oriented plus three, person, location and time. pt reported all his family hx, and he has been on and off in the hospital for many times to me. he still told he has bedbugs at left ear area. Then he told me "I do not think I can go on tomorrow." I am not sure he has really psychological issue or he intentionally want to be admitted in hospital neuro check continue oriented to pt. Qualifiers: Altered mental status type: disorientation Qualified Code(s): R41.0 - Dis orientation, unspecified (3) Hx of bladder cancer Conclusion/Plan: pt followed up , urologist, advise continue followup (4) HTN (hypertension) Conclusion/Plan: pt has elevated BP, will reconcile home after verified by pharmacy. add Hydralazine IV for PRN (5) Do not intubate, cardiopulmonary resuscitation (CPR)-only code status Conclusion/Plan: pt clearly request DNR - Lab Results Fish Bones: 09/11/19 10:13 09/11/19 10:13 Core Measures - Anticipated LOS I expect patient to be DC'd or transferred within 96 hours.: Yes - DVT/VTE - Prophylaxis VTE/DVT Device ordered at admit?: Yes VTE/DVT Prophylaxis med ordered at admit?: Yes
[2019-09-11] MEDS: FAMOTIDINE 20 MG TABLET PO SCH (21:29)
[2019-09-11] MEDS ORDERED: ALPRAZolam 0.25 MG TABLET PO STA (23:38)
[2019-09-12] MEDS ORDERED: LABETALOL 20 MG/4 ML SYRINGE IVP PRN (00:05)
[2019-09-12] MEDS: SODIUM CHLORIDE FLUSH 0.9% 10 ML SYRINGE IVP SCH ×3 (00:06→16:16)
[2019-09-12 06:50] LABS: BASOPHILS % (AUTO) 0.3 %; EOSINOPHILS # (AUTO) 0.1 10^3/uL (0.0-0.7); HGB - HEMOGLOBIN 13.5 g/dL (14.0-18.0); LYMPHOCYTES # (AUTO) 0.8 10^3/uL (1.5-3.5); LYMPHOCYTES % (AUTO) 10.8 %; MEAN CORPUSCULAR HEMOGLOBIN 31.3 pg (27.0-31.0); MEAN CORPUSCULAR HGB CONC 33.6 g/dL (32.0-36.0); MEAN CORPUSCULAR VOLUME 93.3 fL (80.0-94.0); MEAN PLATELET VOLUME 9.6 fL (7.4-11.4); MONOCYTES # (AUTO) 0.9 10^3/uL (0.0-1.0); MONOCYTES % (AUTO) 12.5 %; NEUTROPHILS # (AUTO) 5.3 10^3/uL (1.5-6.6); PLT - PLATELET COUNT 130 10^3/uL (130-450); RED BLOOD COUNT 4.31 10^6/uL (4.70-6.10); RED CELL DISTRIBUTION WIDTH 14.3 % (12.0-15.0)
[2019-09-12 06:58] LABS: CALCIUM 9.3 mg/dL (8.5-10.3); CREATININE 1.1 mg/dL (0.6-1.2); MAGNESIUM 1.9 mg/dL (1.7-2.8)
[2019-09-12] MEDS ORDERED: cefTRIAXone 1 GM VIAL IV SCH (09:00)
[2019-09-12] MEDS: cloNIDine 0.1 MG TABLET PO SCH ×2 (09:03→21:33)
[2019-09-12] MEDS: ENOXAPARIN 40 MG/0.4 ML SYRINGE SUBQ SCH (09:03)
[2019-09-12] MEDS: POLYETHYLENE GLYCOL 3350 17 GM PACKET PO SCH (09:04)
[2019-09-12] MEDS: FAMOTIDINE 20 MG TABLET PO SCH ×2 (09:04→21:34)
[2019-09-12] MEDS: cefTRIAXone 2 GM in SODIUM CHLORIDE 0.9% MINIBAG 100 ML IV SCH (09:14)
[2019-09-12] MEDS: ACETAMINOPHEN 325 MG TABLET PO PRN (16:24)
[2019-09-12] MEDS ORDERED: HYDROcod/ACETAM 5/325 MG TABLET PO PRN (16:30)
--- NOTE | 2019-09-12 16:53 | PROVIDER PROGRESS NOTE ---
Assessment/Plan - Problem List (1) Urinary tract infection Qualifiers: Urinary tract infection type: acute cystitis Hematuria presence: without hematuria Qualified Code(s): N30.00 - Acute cystitis without hematuria Assessment/Plan: 09/12 UA culture reveals positive for coagulase-negative staph, sensitivity study is pending continue Rocephin pt has hx of multiple UTI, previous UA study indicate sensitivity to Rocephin treated with Rocephin followup UA culture. (2) Altered mental status Conclusion/Plan: 09/12 pt is still confused, and oriented only himself. pt's refused to have CT scan of head for pt continue oriented to pt, reduced disruption, and let pt have good sleep in the night continue neuro check pt was reported he had psychosis issue, hallucination in ER. he seems to me he has clear mind, alert and oriented plus three, person, location and time. pt re ported all his family hx, and he has been on and off in the hospital for many times to me. he still told he has bedbugs at left ear area. Then he told me "I do not think I can go on tomorrow." I am not sure he has really psychological issue or he intentionally want to be admitted in hospital neuro check continue oriented to pt. (3) Hx of bladder cancer Conclusion/Plan: pt followed up , urologist, advise continue followup (4) HTN (hypertension) Conclusion/Plan: pt has elevated BP, will reconcile home after verified by pharmacy. add Hydralazine IV for PRN (5) weakness 09/12 pt present weak and difficult to walk. PT/OT evaluated and treated with pt, will followup (2) Altered mental status Qualifiers: Altered mental status type: disorientation Qualified Code(s): R41.0 - Disorientation, unspecified - Current Meds Current Meds: Current Medications Generic Name Dose Route Start Last Admin Trade Name Freq PRN Reason Stop Dose Admin Acetaminophen 650 mg 09/11/19 13:56 09/12/19 16:24 Tylenol PO 650 mg Q4HR PRN Administration Pain 1 to 4 Clonidine HCl 0.1 mg 09/11/19 14:08 09/12/19 09:03 Catapres PO 0.1 mg BID BABAR Administration Enoxaparin Sodium 40 mg 09/12/19 09:00 09/12/19 09:03 Lovenox SUBQ 40 mg DAILY BABAR Administration Famotidine 20 mg 09/11/19 21:00 09/12/19 09:04 Pepcid PO 20 mg BID BABAR Administration Ceftriaxone Sodium 2 gm/ 100 mls @ 200 mls/hr 09/12/19 09:00 09/12/19 09:44 Sodium Chloride IV Infused DAILY BABAR Infusion Polyethylene Glycol 17 gm 09/12/19 09:00 09/12/19 09:04 Miralax PO Not Given DAILY BABAR Sodium Chloride 10 ml 09/11/19 17:00 09/12/19 16:16 Normal Saline Flush 0.9% IVP 10 ml 0100,0900,1700 BABAR Administration - Lab Result Fish Bone Diagrams: 09/12/19 06:05 09/12/19 06:05 - Additional Planning My Orders: My Active Orders 09/11/19 17:00 Sodium Chloride Flush 0.9% [Normal Saline Flush 0.9%] 10 ml IVP 0100,0900,1700 09/11/19 18:26 Neuro Check [RC] QSHIFT 09/11/19 21:00 Famotidine [Pepcid] 20 mg PO BID 09/12/19 09:00 Enoxaparin [Lovenox] 40 mg SUBQ DAILY Polyethylene Glycol 3350 [Miralax] 17 gm PO DAILY cefTRIAXone [Rocephin] 2 gm Sodium Chloride 0.9% Minibag [Normal Saline 0.9% Minibag] 100 ml IV DAILY 09/12/19 16:30 HYDROcod/ACETAM 5/325 [[place] 5/325] 1 tab PO Q4HR PRN 09/13/19 05:00 BMP - BASIC METABOLIC PANEL [CHEM] DAILYLAB CBC - COMP BLD CT W/AUTO DIFF [HEME] DAILYLAB 09/14/19 05:00 BMP - BASIC METABOLIC PANEL [CHEM] DAILYLAB CBC - COMP BLD CT W/AUTO DIFF [HEME] DAILYLAB 09/15/19 05:00 BMP - BASIC METABOLIC PANEL [CHEM] DAILYLAB CBC - COMP BLD CT W/AUTO DIFF [HEME] DAILYLAB 09/16/19 05:00 BMP - BASIC METABOLIC PANEL [CHEM] DAILYLAB CBC - COMP BLD CT W/AUTO DIFF [HEME] DAILYLAB Subjective - Subjective Patient Reports: Back Pain Objective Vital Signs: Vital Signs - 24 hr 09/11/19 09/11/19 09/12/19 20:22 23:35 04:12 Temperature 36.6 C 36.6 C 36.6 C Heart Rate [ Activity] Heart Rate [ 81 83 75 Brachial] Heart Rate [ Supine] Respiratory 18 18 16 Rate Blood Pressure [Activity] Blood Pressure 143/70 H [Left Brachial artery] Blood Pressure 148/75 H 139/70 H [Right Brachial artery] Blood Pressure [Supine] O2 Saturation 95 97 97 09/12/19 09/12/19 09/12/19 08:00 11:40 13:15 Temperature 36.4 C L 36.5 C Heart Rate [ 95 Activity] Heart Rate [ 79 84 Brachial] Heart Rate [ 81 Supine] Respiratory 18 18 Rate Blood Pressure 155/65 H [Activity] Blood Pressure [Left Brachial artery] Blood Pressure 152/69 H 127/56 L [Right Brachial artery] Blood Pressure 138/58 H [Supine] O2 Saturation 97 97 09/12/19 16:00 Temperature 36.7 C Heart Rate [ Activity] Heart Rate [ 76 Brachial] Heart Rate [ Supine] Respiratory 16 Rate Blood Pressure [Activity] Blood Pressure [Left Brachial artery] Blood Pressure 141/71 H [Right Brachial artery] Blood Pressure [Supine] O2 Saturation 98 Oxygen O2 Source Room air I&O (Last 24 Hrs): Intake and Output Totals x24h 09/10/19 09/11/19 09/12/19 23:59 23:59 23:59 Intake Total 440 1230 Output Total 400 1700 Balance 40 -470 General: Alert, No acute distress HEENT: PERRLA Neck: Supple Lymphatic: no adenopathy Neuro: Alert Cardiovascular: Regular rate Respiratory: Chest non-tender, No respiratory distress, Breath sounds nml Abdomen: Normal bowel sounds, Soft, No tenderness - Results Results: Laboratory Results WBC 7.0 x10^3/uL (4.8-10.8) 09/12/19 06:05 RBC 4.31 10^6/uL (4.70-6.10) L 09/12/19 06:05 Hgb 13.5 g/dL (14.0-18.0) L 09/12/19 06:05 Hct 40.2 % (42.0-52.0) L 09/12/19 06:05 MCV 93.3 fL (80.0-94.0) 09/12/19 06:05 MCH 31.3 pg (27.0-31.0) H 09/12/19 06:05 MCHC 33.6 g/dL (32.0-36.0) 09/12/19 06:05 RDW 14.3 % (12.0-15.0) 09/12/19 06:05 Plt Count 130 10^3/uL (130-450) 09/12/19 06:05 MPV 9.6 fL (7.4-11.4) 09/12/19 06:05 Neut # (Auto) 5.3 10^3/uL (1.5-6.6) 09/12/19 06:05 Lymph # (Auto) 0.8 10^3/uL (1.5-3.5) L 09/12/19 06:05 [place] # (Auto) 0.9 10^3/uL (0.0-1.0) 09/12/19 06:05 Eos # (Auto) 0.1 10^3/uL (0.0-0.7) 09/12/19 06:05 Baso # (Auto) 0.0 10^3/uL (0.0-0.1) 09/12/19 06:05 Absolute Nucleated RBC 0.00 x10^3/uL 09/12/19 06:05 Nucleated RBC % 0.0 /100WBC 09/12/19 06:05 Sodium 133 mmol/L (135-145) L 09/12/19 06:05 Potassium 4.2 mmol/L (3.5-5.0) 09/12/19 06:05 Chloride 98 mmol/L (101-111) L 09/12/19 06:05 Carbon Dioxide 27 mmol/L (21-32) 09/12/19 06:05 Anion Gap 8.0 (6-13) 09/12/19 06:05 BUN 17 mg/dL (6-20) 09/12/19 06:05 Creatinine 1.1 mg/dL (0.6-1.2) 09/12/19 06:05 Estimated GFR (MDRD) 65 (>89) L 09/12/19 06:05 Glucose 109 mg/dL (70-100) H 09/12/19 06:05 Calcium 9.3 mg/dL (8.5-10.3) 09/12/19 06:05 Magnesium 1.9 mg/dL (1.7-2.8) 09/12/19 06:05 Total Bilirubin 0.7 mg/dL (0.2-1.0) 09/11/19 10:13 AST 24 IU/L (10-42) 09/11/19 10:13 ALT 20 IU/L (10-60) 09/11/19 10:13 Alkaline Phosphatase 38 IU/L (42-121) L 09/11/19 10:13 Troponin I High Sens 6.7 pg/mL (2.3-19.7) 09/11/19 10:13 B-Natriuretic Peptide 58 pg/mL (5-100) 09/11/19 10:13 Total Protein 7.4 g/dL (6.7-8.2) 09/11/19 10:13 Albumin 4.0 g/dL (3.2-5.5) 09/11/19 10:13 Globulin 3.4 g/dL (2.1-4.2) 09/11/19 10:13 Albumin/Globulin Ratio 1.2 (1.0-2.2) 09/11/19 10:13 Lipase 39 U/L (22-51) 09/11/19 10:13 TSH 0.24 uIU/mL (0.34-5.60) L 09/11/19 10:13 Free T4 1.40 ng/dL (0.58-1.64) 09/12/19 06:05 Urine Color YELLOW 09/11/19 10:30 Urine Clarity SL. CLOUDY (CLEAR) 09/11/19 10:30 Urine pH 7.0 PH (5.0-7.5) 09/11/19 10:30 Ur Specific [employer] 1.010 (1.002-1.030) 09/11/19 10:30 Urine Protein NEGATIVE mg/dL (NEGATIVE) 09/11/19 10:30 Urine Glucose (UA) NEGATIVE mg/dL (NEGATIVE) 09/11/19 10:30 Urine Ketones NEGATIVE mg/dL (NEGATIVE) 09/11/19 10:30 Urine Occult Blood NEGATIVE (NEGATIVE) 09/11/19 10:30 Urine Nitrite POSITIVE (NEGATIVE) H 09/11/19 10:30 Urine Bilirubin NEGATIVE (NEGATIVE) 09/11/19 10:30 Urine Urobilinogen 0.2 (NORMAL) E.U./dL (NORMAL) 09/11/19 10:30 Ur Leukocyte Esterase MODERATE (NEGATIVE) H 09/11/19 10:30 Urine RBC None Seen /HPF (0-5) 09/11/19 10:30 Urine WBC 11-25 /HPF (0-3) H 09/11/19 10:30 Ur Squamous Epith Cells RARE Squamous (<= Few) 09/11/19 10:30 Urine Bacteria Few /HPF (None Seen) 09/11/19 10:30 Urine Yeast PRESENT 09/11/19 10:30 Ur Microscopic Review INDICATED 09/11/19 10:30 Urine Culture Comments INDICATED 09/11/19 10:30 Urine Opiates Screen NEGATIVE (NEGATIVE) 09/11/19 10:30 Ur Oxycodone Screen NEGATIVE (NEGATIVE) 09/11/19 10:30 Urine Methadone Screen NEGATIVE (NEGATIVE) 09/11/19 10:30 Ur Propoxyphene Screen NEGATIVE (NEGATIVE) 09/11/19 10:30 Ur Barbiturates Screen NEGATIVE (NEGATIVE) 09/11/19 10:30 Ur Tricyclics Screen NEGATIVE (NEGATIVE) 09/11/19 10:30 Ur Phencyclidine Scrn NEGATIVE (NEGATIVE) 09/11/19 10:30 Ur Amphetamine Screen NEGATIVE (NEGATIVE) 09/11/19 10:30 U Methamphetamines Scrn NEGATIVE (NEGATIVE) 09/11/19 10:30 U Benzodiazepines Scrn POSITIVE (NEGATIVE) H 09/11/19 10:30 Urine Cocaine Screen NEGATIVE (NEGATIVE) 09/11/19 10:30 U Cannabinoids Screen NEGATIVE (NEGATIVE) 09/11/19 10:30 Ethyl Alcohol < 5.0 mg/dL 09/11/19 10:13 Sepsis Event Note (H) - Evaluation Current Stage of Sepsis: Ruled out Current Medications - Current Medications Current Medications: Active Medications Acetaminophen (Tylenol) 650 mg PO Q4HR PRN PRN Reason: Pain 1 to 4 Last Admin: 09/12/19 16:24 Dose: 650 mg Hydrocodone Bitart/Acetaminophen ([place] 5/325) 1 tab PO Q4HR PRN PRN Reason: PAIN Alprazolam (Xanax) 1 mg PO QPM BABAR Clonidine HCl (Catapres) 0.1 mg PO BID BABAR Last Admin: 09/12/19 09:03 Dose: 0.1 mg Enoxaparin Sodium (Lovenox) 40 mg SUBQ DAILY [facility] Last Admin: 09/12/19 09:03 Dose: 40 mg Famotidine (Pepcid) 20 mg PO BID [facility] Last Admin: 09/12/19 09:04 Dose: 20 mg Ceftriaxone Sodium 2 gm/ (Sodium Chloride) 100 mls @ 200 mls/hr IV DAILY [facility] Last Infusion: 09/12/19 09:44 Dose: Infused Labetalol HCl (Trandate Syringe) 10 mg IVP Q4H PRN PRN Reason: PER PHYSICIAN ORDER Ondansetron HCl (Zofran Inj) 4 mg IVP Q6HR PRN PRN Reason: Nausea / Vomiting Polyethylene Glycol (Miralax) 17 gm PO DAILY [facility] Last Admin: 09/12/19 09:04 Dose: Not Given Sodium Chloride (Normal Saline Flush 0.9%) 10 ml IVP PRN PRN PRN Reason: NEEDED PER PROVIDER ORDERS Sodium Chloride (Normal Saline Flush 0.9%) 10 ml IVP 0100,0900,1700 [facility] Last Admin: 09/12/19 16:16 Dose: 10 ml Atorvastatin [Lipitor] 20 mg PO QPM 04/16/15 Fluticasone [Flonase] 1 spray [place] DAILY PRN 05/10/19 Sennosides [Senna Lax] 8.6 mg PO BID PRN 05/10/19 ALPRAZolam [Alprazolam] 1 mg PO QPM 09/11/19 Metoprolol Succinate [Toprol Xl] 100 mg PO QPM 09/11/19 Ondansetron [Ondansetron Odt] 8 mg TL Q6H PRN 09/11/19 cloNIDine [Catapres] 0.1 mg PO BID 09/11/19
[2019-09-12] MEDS ORDERED: ALPRAZolam 0.25 MG TABLET PO SCH (21:00)
[2019-09-13] MEDS: SODIUM CHLORIDE FLUSH 0.9% 10 ML SYRINGE IVP SCH ×3 (00:56→17:02)
[2019-09-13] MEDS: ACETAMINOPHEN 325 MG TABLET PO PRN ×3 (01:30→12:55)
[2019-09-13 05:50] LABS: BASOPHILS % (AUTO) 0.6 %; EOSINOPHILS # (AUTO) 0.1 10^3/uL (0.0-0.7); EOSINOPHILS % (AUTO) 1.5 %; LYMPHOCYTES # (AUTO) 0.8 10^3/uL (1.5-3.5); LYMPHOCYTES % (AUTO) 15.3 %; MEAN CORPUSCULAR HEMOGLOBIN 32.2 pg (27.0-31.0); MEAN CORPUSCULAR VOLUME 94.6 fL (80.0-94.0); MEAN PLATELET VOLUME 9.7 fL (7.4-11.4); MONOCYTES # (AUTO) 0.8 10^3/uL (0.0-1.0); MONOCYTES % (AUTO) 14.5 %; NEUTROPHILS # (AUTO) 3.7 10^3/uL (1.5-6.6); NEUTROPHILS % (AUTO) 67.7 %; PLT - PLATELET COUNT 118 10^3/uL (130-450); RED BLOOD COUNT 4.04 10^6/uL (4.70-6.10); RED CELL DISTRIBUTION WIDTH 14.1 % (12.0-15.0); WHITE BLOOD COUNT 5.4 x10^3/uL (4.8-10.8)
[2019-09-13 05:56] LABS: CALCIUM 9.1 mg/dL (8.5-10.3)
[2019-09-13] MEDS: cloNIDine 0.1 MG TABLET PO SCH ×2 (09:40→20:41)
[2019-09-13] MEDS: POLYETHYLENE GLYCOL 3350 17 GM PACKET PO SCH (09:41)
[2019-09-13] MEDS: ENOXAPARIN 40 MG/0.4 ML SYRINGE SUBQ SCH (09:41)
[2019-09-13] MEDS: cefTRIAXone 2 GM in SODIUM CHLORIDE 0.9% MINIBAG 100 ML IV SCH (09:41)
[2019-09-13] MEDS: FAMOTIDINE 20 MG TABLET PO SCH ×2 (09:41→20:41)
[2019-09-13 13:09] LABS: BILIRUBIN,URINE NEGATIVE (NEGATIVE); GLUCOSE, URINE (UA) NEGATIVE (NEGATIVE); KETONES,URINE (UA) NEGATIVE (NEGATIVE); LEUKOCYTE ESTERASE, URINE SMALL (NEGATIVE); NITRITE,URINE POSITIVE (NEGATIVE); OCCULT BLOOD,URINE NEGATIVE (NEGATIVE); PROTEIN,URINE NEGATIVE (NEGATIVE); UROBILINOGEN,URINE 0.2 (NORMAL) E.U./dL (NORMAL)
[2019-09-13 13:11] LABS: CLARITY,URINE HAZY (CLEAR)
[2019-09-13 13:18] LABS: RBC,URINE 0-5 /HPF (0-5); SQUAMOUS EPITHELIAL CELL,UR FEW Squamous (<= Few)
[2019-09-13 13:19] LABS: BACTERIA,URINE Rare /HPF (None Seen); YEAST,URINE PRESENT
[2019-09-13] MEDS ORDERED: METOPROLOL SUCCINATE 50 MG TABLET PO SCH (14:30)
--- NOTE | 2019-09-13 17:57 | PROVIDER PROGRESS NOTE ---
Assessment/Plan - Problem List (1) Urinary tract infection Qualifiers: Urinary tract infection type: acute cystitis Hematuria presence: without hematuria Qualified Code(s): N30.00 - Acute cystitis without hematuria Assessment/Plan: 09/13 pt's UA culture and sensitivity study is pending, pt had multiple UTI and significant resistance was found in the previous. it is very importance to have pt's sensitive study, although pt was not found to have ESBL yet. 09/12 UA culture reveals positive for coagulase-negative staph, sensitivity study is pending continue Rocephin pt has hx of multiple UTI, previous UA study indicate sensitivity to Rocephin treated with Rocephin followup UA culture. (2) Altered mental status Conclusion/Plan: 09/13 it is slight better than yesterday, alert and oriented to person and location, but not time continue oriented to pt by nurse ans staff, keep quiet and stable environments, let pt have good sleep 09/12 pt is still confused, and oriented only himself. pt's refused to have CT scan of head for pt continue oriented to pt, reduced disruption, and let pt have good sleep in the night continue neuro check pt was reported he had psychosis issue, hallucination in ER. he seems to me he has clear mind, alert and oriented plus three, person, location and time. pt reported all his family hx, and he has been on and off in the hospital for many times to me. he still told he has bedbugs at left ear area. Then he told me "I do not think I can go on tomorrow." I am not sure he has really psychological issue or he intentionally want to be admitted in hospital neuro check continue oriented to pt. (3) Hx of bladder cancer with ileal conduit and ileostomy bag Conclusion/Plan: 09/13 continue nurse care, advise pt followup Urologist pt followed up , urologist, advise continue followup (4) HTN (hypertension) Conclusion/Plan: pt has elevated BP, will reconcile home after verified by pharmacy. add Hydralazine IV for PRN (5) profound weakness 09/13 pt still present profound weakness today, PT/OT recommend pt d/c to SNF for continuing training. continue PT/OT 09/12 pt present weak and difficult to walk. PT/OT evaluated and treated with pt, will followup (2) Altered mental status Qualifiers: Altered mental status type: disorientation Qualified Code(s): R41.0 - Disorientation, unspecified - Current Meds Current Meds: Current Medications Generic Name Dose Route Start Last Admin Trade Name Freq PRN Reason Stop Dose Admin Acetaminophen 650 mg 09/11/19 13:56 09/13/19 12:55 Tylenol PO 650 mg Q4HR PRN Administration Pain 1 to 4 Clonidine HCl 0.1 mg 09/11/19 14:08 09/13/19 09:40 Catapres PO 0.1 mg BID BABAR Administration Enoxaparin Sodium 40 mg 09/12/19 09:00 09/13/19 09:41 Lovenox SUBQ 40 mg DAILY BABAR Administration Famotidine 20 mg 09/11/19 21:00 09/13/19 09:41 Pepcid PO 20 mg BID BABAR Administration Ceftriaxone Sodium 2 gm/ 100 mls @ 200 mls/hr 09/12/19 09:00 09/13/19 10:15 Sodium Chloride IV Infused DAILY BABAR Infusion Metoprolol Succinate 100 mg 09/13/19 14:30 09/13/19 14:27 Toprol Xl PO 100 mg QPM BABAR Administration Polyethylene Glycol 17 gm 09/12/19 09:00 09/13/19 09:41 Miralax PO 17 gm DAILY BABAR Administration Sodium Chloride 10 ml 09/11/19 17:00 09/13/19 17:02 Normal Saline Flush 0.9% IVP 10 ml 0100,0900,1700 BABAR Administration - Lab Result Fish Bone Diagrams: 09/13/19 05:26 09/13/19 05:26 - Additional Planning My Orders: My Active Orders 09/13/19 13:00 CUL, URINE [RM] Routine 09/13/19 14:30 Metoprolol Succinate [Toprol Xl] 100 mg PO QPM 09/13/19 21:00 ALPRAZolam [Xanax] 1 mg PO QPM Atorvastatin [Lipitor] 20 mg PO QPM 09/14/19 05:00 BMP - BASIC METABOLIC PANEL [CHEM] DAILYLAB CBC - COMP BLD CT W/AUTO DIFF [HEME] DAILYLAB 09/15/19 05:00 BMP - BASIC METABOLIC PANEL [CHEM] DAILYLAB CBC - COMP BLD CT W/AUTO DIFF [HEME] DAILYLAB 09/16/19 05:00 BMP - BASIC METABOLIC PANEL [CHEM] DAILYLAB CBC - COMP BLD CT W/AUTO DIFF [HEME] DAILYLAB Subjective - Subjective Patient Reports: Feeling Better Objective Vital Signs: Vital Signs - 24 hr 09/12/19 09/12/19 09/13/19 21:16 23:35 05:20 Temperature 36.4 C L 36.4 C L 36.3 C L Heart Rate [ 67 74 65 Brachial] Heart Rate [ Supine] Respiratory 18 16 16 Rate Blood Pressure 158/64 H 132/66 H 140/62 H [Right Brachial artery] Blood Pressure [Supine] O2 Saturation 97 98 100 09/13/19 09/13/19 09/13/19 08:15 11:35 12:42 Temperature 36.3 C L 36.1 C L Heart Rate [ 74 98 Brachial] Heart Rate [ 86 Supine] Respiratory 18 21 Rate Blood Pressure 168/65 H 142/57 H [Right Brachial artery] Blood Pressure 155/69 H [Supine] O2 Saturation 99 100 09/13/19 16:00 Temperature 36.5 C Heart Rate [ 75 Brachial] Heart Rate [ Supine] Respiratory 20 Rate Blood Pressure 155/66 H [Right Brachial artery] Blood Pressure [Supine] O2 Saturation 100 Oxygen O2 Source Room air I&O (Last 24 Hrs): Intake and Output Totals x24h 09/11/19 09/12/19 09/13/19 23:59 23:59 23:59 Intake Total 440 1630 790 Output Total 400 3200 1675 Balance 40 -1570 -885 General: Alert, No acute distress HEENT: PERRLA Neck: Supple Lymphatic: no adenopathy Neuro: Alert, Disoriented, Non Focal Cardiovascular: Regular rate Respiratory: Chest non-tender, No respiratory distress, Breath sounds nml Abdomen: Normal bowel sounds, Soft Extremities: No clubbing - Results Results: Laboratory Results WBC 5.4 x10^3/uL (4.8-10.8) 09/13/19 05:26 RBC 4.04 10^6/uL (4.70-6.10) L 09/13/19 05:26 Hgb 13.0 g/dL (14.0-18.0) L 09/13/19 05:26 Hct 38.2 % (42.0-52.0) L 09/13/19 05:26 MCV 94.6 fL (80.0-94.0) H 09/13/19 05:26 MCH 32.2 pg (27.0-31.0) H 09/13/19 05:26 MCHC 34.0 g/dL (32.0-36.0) 09/13/19 05:26 RDW 14.1 % (12.0-15.0) 09/13/19 05:26 Plt Count 118 10^3/uL (130-450) L 09/13/19 05:26 MPV 9.7 fL (7.4-11.4) 09/13/19 05:26 Neut # (Auto) 3.7 10^3/uL (1.5-6.6) 09/13/19 05:26 Lymph # (Auto) 0.8 10^3/uL (1.5-3.5) L 09/13/19 05:26 Stearns # (Auto) 0.8 10^3/uL (0.0-1.0) 09/13/19 05:26 Eos # (Auto) 0.1 10^3/uL (0.0-0.7) 09/13/19 05:26 Baso # (Auto) 0.0 10^3/uL (0.0-0.1) 09/13/19 05:26 Absolute Nucleated RBC 0.00 x10^3/uL 09/13/19 05:26 Nucleated RBC % 0.0 /100WBC 09/13/19 05:26 Sodium 132 mmol/L (135-145) L 09/13/19 05:26 Potassium 4.2 mmol/L (3.5-5.0) 09/13/19 05:26 Chloride 95 mmol/L (101-111) L 09/13/19 05:26 Carbon Dioxide 29 mmol/L (21-32) 09/13/19 05:26 Anion Gap 8.0 (6-13) 09/13/19 05:26 BUN 17 mg/dL (6-20) 09/13/19 05:26 Creatinine 1.0 mg/dL (0.6-1.2) 09/13/19 05:26 Estimated GFR (MDRD) 72 (>89) L 09/13/19 05:26 Glucose 99 mg/dL (70-100) 09/13/19 05:26 Calcium 9.1 mg/dL (8.5-10.3) 09/13/19 05:26 Magnesium 1.9 mg/dL (1.7-2.8) 09/12/19 06:05 Total Bilirubin 0.7 mg/dL (0.2-1.0) 09/11/19 10:13 AST 24 IU/L (10-42) 09/11/19 10:13 ALT 20 IU/L (10-60) 09/11/19 10:13 Alkaline Phosphatase 38 IU/L (42-121) L 09/11/19 10:13 Troponin I High Sens 6.7 pg/mL (2.3-19.7) 09/11/19 10:13 B-Natriuretic Peptide 58 pg/mL (5-100) 09/11/19 10:13 Total Protein 7.4 g/dL (6.7-8.2) 09/11/19 10:13 Albumin 4.0 g/dL (3.2-5.5) 09/11/19 10:13 Globulin 3.4 g/dL (2.1-4.2) 09/11/19 10:13 Albumin/Globulin Ratio 1.2 (1.0-2.2) 09/11/19 10:13 Lipase 39 U/L (22-51) 09/11/19 10:13 TSH 0.24 uIU/mL (0.34-5.60) L 09/11/19 10:13 Free T4 1.40 ng/dL (0.58-1.64) 09/12/19 06:05 Urine Color YELLOW 09/13/19 13:00 Urine Clarity HAZY (CLEAR) 09/13/19 13:00 Urine pH 6.0 PH (5.0-7.5) 09/13/19 13:00 Ur Specific Badger <=1.005 (1.002-1.030) 09/13/19 13:00 Urine Protein NEGATIVE mg/dL (NEGATIVE) 09/13/19 13:00 Urine Glucose (UA) NEGATIVE mg/dL (NEGATIVE) 09/13/19 13:00 Urine Ketones NEGATIVE mg/dL (NEGATIVE) 09/13/19 13:00 Urine Occult Blood NEGATIVE (NEGATIVE) 09/13/19 13:00 Urine Nitrite POSITIVE (NEGATIVE) H 09/13/19 13:00 Urine Bilirubin NEGATIVE (NEGATIVE) 09/13/19 13:00 Urine Urobilinogen 0.2 (NORMAL) E.U./dL (NORMAL) 09/13/19 13:00 Ur Leukocyte Esterase SMALL (NEGATIVE) H 09/13/19 13:00 Urine RBC 0-5 /HPF (0-5) 09/13/19 13:00 Urine WBC 4-5 /HPF (0-3) 09/13/19 13:00 Ur Squamous Epith Cells FEW Squamous (<= Few) 09/13/19 13:00 Urine Bacteria Rare /HPF (None Seen) 09/13/19 13:00 Urine Yeast PRESENT 09/13/19 13:00 Ur Microscopic Review INDICATED 09/11/19 10:30 Urine Culture Comments INDICATED 09/13/19 13:00 Urine Opiates Screen NEGATIVE (NEGATIVE) 09/11/19 10:30 Ur Oxycodone Screen NEGATIVE (NEGATIVE) 09/11/19 10:30 Urine Methadone Screen NEGATIVE (NEGATIVE) 09/11/19 10:30 Ur Propoxyphene Screen NEGATIVE (NEGATIVE) 09/11/19 10:30 Ur Barbiturates Screen NEGATIVE (NEGATIVE) 09/11/19 10:30 Ur Tricyclics Screen NEGATIVE (NEGATIVE) 09/11/19 10:30 Ur Phencyclidine Scrn NEGATIVE (NEGATIVE) 09/11/19 10:30 Ur Amphetamine Screen NEGATIVE (NEGATIVE) 09/11/19 10:30 U Methamphetamines Scrn NEGATIVE (NEGATIVE) 09/11/19 10:30 U Benzodiazepines Scrn POSITIVE (NEGATIVE) H 09/11/19 10:30 Urine Cocaine Screen NEGATIVE (NEGATIVE) 09/11/19 10:30 U Cannabinoids Screen NEGATIVE (NEGATIVE) 09/11/19 10:30 Ethyl Alcohol < 5.0 mg/dL 09/11/19 10:13 Sepsis Event Note (H) - Evaluation Current Stage of Sepsis: Ruled out Current Medications - Current Medications Current Medications: Active Medications Acetaminophen (Tylenol) 650 mg PO Q4HR PRN PRN Reason: Pain 1 to 4 Last Admin: 09/13/19 12:55 Dose: 650 mg Alprazolam (Xanax) 1 mg PO QPM BABAR Atorvastatin Calcium (Lipitor) 20 mg PO QPM BABAR Clonidine HCl (Catapres) 0.1 mg PO BID BABAR Last Admin: 09/13/19 09:40 Dose: 0.1 mg Enoxaparin Sodium (Lovenox) 40 mg SUBQ DAILY [facility] Last Admin: 09/13/19 09:41 Dose: 40 mg Famotidine (Pepcid) 20 mg PO BID [facility] Last Admin: 09/13/19 09:41 Dose: 20 mg Ceftriaxone Sodium 2 gm/ (Sodium Chloride) 100 mls @ 200 mls/hr IV DAILY [facility] Last Infusion: 09/13/19 10:15 Dose: Infused Labetalol HCl (Trandate Syringe) 10 mg IVP Q4H PRN PRN Reason: PER PHYSICIAN ORDER Metoprolol Succinate (Toprol Xl) 100 mg PO QPM [facility] Last Admin: 09/13/19 14:27 Dose: 100 mg Ondansetron HCl (Zofran Inj) 4 mg IVP Q6HR PRN PRN Reason: Nausea / Vomiting Polyethylene Glycol (Miralax) 17 gm PO DAILY [facility] Last Admin: 09/13/19 09:41 Dose: 17 gm Sodium Chloride (Normal Saline Flush 0.9%) 10 ml IVP PRN PRN PRN Reason: NEEDED PER PROVIDER ORDERS Sodium Chloride (Normal Saline Flush 0.9%) 10 ml IVP 0100,0900,1700 [facility] Last Admin: 09/13/19 17:02 Dose: 10 ml Atorvastatin [Lipitor] 20 mg PO QPM 04/16/15 Fluticasone [Flonase] 1 spray MILAGRO DAILY PRN 05/10/19 Sennosides [Senna Lax] 8.6 mg PO BID PRN 05/10/19 ALPRAZolam [Alprazolam] 1 mg PO QPM 09/11/19 Metoprolol Succinate [Toprol Xl] 100 mg PO QPM 09/11/19 Ondansetron [Ondansetron Odt] 8 mg TL Q6H PRN 09/11/19 cloNIDine [Catapres] 0.1 mg PO BID 09/11/19
[2019-09-13] MEDS ORDERED: ATORVASTATIN 40 MG TABLET PO SCH (21:00)
[2019-09-13] MEDS ORDERED: ALPRAZolam 0.25 MG TABLET PO SCH (21:00)
[2019-09-13] MEDS ORDERED: NON FORMULARY MED (Metoprolol Succinate [Toprol Xl] 100 MG) PO SCH (21:00)
[2019-09-14] MEDS: SODIUM CHLORIDE FLUSH 0.9% 10 ML SYRINGE IVP SCH ×2 (06:02→09:23)
[2019-09-14 06:11] LABS: BASOPHILS % (AUTO) 0.6 %; EOSINOPHILS # (AUTO) 0.1 10^3/uL (0.0-0.7); EOSINOPHILS % (AUTO) 1.3 %; HGB - HEMOGLOBIN 13.7 g/dL (14.0-18.0); LYMPHOCYTES # (AUTO) 0.9 10^3/uL (1.5-3.5); LYMPHOCYTES % (AUTO) 12.2 %; MEAN CORPUSCULAR HEMOGLOBIN 32.2 pg (27.0-31.0); MEAN CORPUSCULAR HGB CONC 33.8 g/dL (32.0-36.0); MEAN CORPUSCULAR VOLUME 95.3 fL (80.0-94.0); MEAN PLATELET VOLUME 9.3 fL (7.4-11.4); MONOCYTES # (AUTO) 0.9 10^3/uL (0.0-1.0); MONOCYTES % (AUTO) 12.6 %; NEUTROPHILS # (AUTO) 5.1 10^3/uL (1.5-6.6); NEUTROPHILS % (AUTO) 72.9 %; PLT - PLATELET COUNT 149 10^3/uL (130-450); RED BLOOD COUNT 4.25 10^6/uL (4.70-6.10); RED CELL DISTRIBUTION WIDTH 14.1 % (12.0-15.0)
[2019-09-14 06:18] LABS: CALCIUM 9.1 mg/dL (8.5-10.3)
[2019-09-14] MEDS: cefTRIAXone 2 GM in SODIUM CHLORIDE 0.9% MINIBAG 100 ML IV SCH (09:21)
[2019-09-14] MEDS: ACETAMINOPHEN 325 MG TABLET PO PRN (09:22)
[2019-09-14] MEDS: FAMOTIDINE 20 MG TABLET PO SCH (09:22)
[2019-09-14] MEDS: POLYETHYLENE GLYCOL 3350 17 GM PACKET PO SCH (09:22)
[2019-09-14] MEDS: cloNIDine 0.1 MG TABLET PO SCH (09:22)
[2019-09-14] MEDS: ENOXAPARIN 40 MG/0.4 ML SYRINGE SUBQ SCH ×2 (09:22→09:33)
[2019-09-14 12:14] VITALS: BP 148/69
--- NOTE | 2019-09-14 12:32 | Discharge Plan ---
"Discharge Plan for SNF / [facility] - Discharge Plan And Transition Orders Problem Reviewed?: Yes Disposition: 03 SNF DC/Xfer Condition: Stable Allergies and Adverse Reactions: Allergies Allergy/AdvReac Type Severity Reaction Status Date / Time hydralazine Allergy Unknown Verified 09/11/19 09:31 oxycodone Allergy Unknown Verified 09/11/19 09:31 diphenhydramine HCl * AdvReac Hallucinati Verified 09/11/19 09:31 [From Benadryl] ons morphine AdvReac Hallucinati Verified 09/11/19 09:31 ons Health Concerns: weakness Plan of Treatment: pt will continue to have PT/OT training Care Goals: stabilization and improvement of your medical conditions Assessment: assessment as the above - SNF / [facility] Transition Orders Admit to (Facility): [facility] Under the care of (Name): PCP, Kurtis Corona Discharge Diagnosis: weakness, AMS, hx of bladder caner with ideal conduit and ileostomy bag, UTI, HTN Medicare Certification Statement: I do not certify that Post Hospital half-way care is medically necessary on a continuing basis for any of the conditions for which she/he is receiving care during hospitalization. Notify PCP of admission and forward orders to primary provider for signature. Weight on admission and: Daily Call PCP immediately if weight increases by: 2 kg Other Notification Orders: Call PCP immediately if patient develops dyspnea, chest pain/tightness or edema. [facility] Bowel Program: Yes Additional Bowel Program Orders: If no BM after 2 days, nurse may give M.O.M. 30ml PO PRN and/or ducolax Supp 1 NM and/or AURA 250mg P.O., and/or senna 1-2 tabs PO. On day 3 nurse may give repeat above order until residents constipation is resolved. Annual Influenza Vaccine (between Jul 29 and February 25): Yes Two-step PPD per [facility] [phone] or approved exception documents: Yes Treatments & Other Orders: pt may followup PCP when pt is arrival to [facility], followup urologist as out-pt, and followup PT/OT training. Medication Orders: PLEASE REFER TO THE DISCHARGE MEDICATION LIST. Insulin Orders?: No - Medications New Prescriptions: cefUROXime axetil [Ceftin] 500 mg PO Q12H #6 tablet - Diet Type: Geriatric Texture: Regular Liquids: Thin May have monthly special meal: Yes - Therapies | Activity Therapy: Evaluation | Treat if indicated: PT, OT Rehabilitation Potential: Maximize functional status Activity: Activity as Tolerated Additional Instructions: pt may followup PCP when pt is arrival to [facility], followup urologist as out-pt, and followup PT/OT training."
--- NOTE | 2019-09-14 12:48 | DISCHARGE SUMMARY ---
Discharge Summary Admit Date: 09/11/19 Discharge Date: 09/14/19 Discharging Provider: VEE Primary Care Provider: Kurtis Jhaveri Condition at Discharge: Stable Discharge Disposition: 03 SNF DC/Xfer Discharge Facility Name: [facility] - DIAGNOSES Admission Diagnoses: (1) Urinary tract infection (2) Altered mental status (3) Hx of bladder cancer (4) HTN (hypertension) Discharge Diagnoses with Status of Each Condition: 1) Urinary tract infection pt has multiple UTI since he had ileal conduit and ileostomy bag. pt is prescribed short term of ceftin to finish the treatment course. (2) Altered mental status resolved (3) Hx of bladder cancer with ileal conduit and ileostomy bag stable, followup urologist (4) HTN (hypertension) stable (5) weakness improved, pt and his chose [facility], home health PT/OT is ordered for pt (6) chronic hyponatremia stable - HPI History of Present Illness: Mr. Redd is a 79-yrs old male with a medical history significant for prostate and bladder cancer status post ileal conduit and ileostomy, a partial colon resection in 2004, chronic constipation, HTN, CKD with recurrent UTIs, who is br ought in by EMS from home because his states that he has been weakness and slightly confused over the last several days. Pt had recurrence of a UTI, and was treated in [place] in the last month with urology consultation, he was discharged home and reportedly had improvement. pt report " I do not like [place] at all, do not transfer to [place] again." Pt alert and oriented plus three, he know person, location and time, but he was reported over the last several days he has had some hallucinations of bedbugs. Patient denies abdominal pain or cramp, fever, chill, chest pain, shortness of breath. pt was found to have UTI in UA. pt was admitted in observation unit for further management. - HOSPITAL COURSE Hospital Course: pt was admitted for altered mental status and UTI, and weakness. pt's refused pt to have CT of head. pt did not present acute focal neurological deficiency. pt has hx of bladder cancer with ileal conduit and ileostomy bag. pt has hx of multiple UTI. PT/OT evaluated and treated, and recommended home health PT/OT for pt. pt was treated with antibiotics in hospital. pt is medical clear for d/c today. pt is alert and oriented to person, location, and time. pt is hemodynamic stable. pt's lab test is unremarkable or stable. I personally discussed with pt and pt's the decision for pt is medical clear, and p resented data to show to pt and pt's , clearly answered all pt's questions and concerns. psychiatric social worker worded with pt and his . pt and his chose [facility]. home health PT/OT is ordered for pt. The detail hospital course is as the following 1) Urinary tract infection pt has multiple UTI since he had ileal conduit and ileostomy bag. pt is presc ribed short term of ceftin to finish the treatment course. (2) Altered mental status resolved (3) Hx of bladder cancer with ileal conduit and ileostomy bag stable, followup urologist (4) HTN (hypertension) stable (5) weakness improved, pt and his chose [facility], home health PT/OT is ordered for pt (6) chronic hyponatremia stable - ALLERGIES Allergies/Adverse Reactions: Allergies Allergy/AdvReac Type Severity Reaction Status Date / Time hydralazine Allergy Unknown Verified 09/11/19 09:31 oxycodone Allergy Unknown Verified 09/11/19 09:31 diphenhydramine HCl * AdvReac Hallucinati Verified 09/11/19 09:31 [From Benadryl] ons morphine AdvReac Hallucinati Verified 09/11/19 09:31 ons - MEDICATIONS Home Medications: Ambulatory Orders Medication Instructions Recorded Confirmed Atorvastatin [Lipitor] 20 mg PO QPM 04/16/15 09/11/19 Fluticasone [Flonase] 1 spray MILAGRO DAILY PRN 05/10/19 09/12/19 Sennosides [Senna Lax] 8.6 mg PO BID PRN 05/10/19 09/12/19 ALPRAZolam [Alprazolam] 1 mg PO QPM 09/11/19 09/11/19 Metoprolol Succinate [Toprol Xl] 100 mg PO QPM 09/11/19 09/12/19 Ondansetron [Ondansetron Odt] 8 mg TL Q6H PRN 09/11/19 09/11/19 cloNIDine [Catapres] 0.1 mg PO BID 09/11/19 09/11/19 cefUROXime axetil [Ceftin] 500 mg PO Q12H #6 tablet 09/14/19 - PHYSICAL EXAM AT DISCHARGE General Appearance: positive: No acute distress, Alert. negative: Lethargic Eyes Bilateral: positive: Normal inspection, PERRL, No lid inflammation ENT: positive: ENT inspection nml, Pharynx nml, No signs of dehydration. negative: Purulent nasal drainage Neck: positive: Nml inspection, Thyroid nml, No JVD, Trachea midline. negative: Thyromegaly, Lymphadenopathy (R), Lymphadenopathy (L), Stiff neck, Tracheal dev iation Respiratory: positive: Chest non-tender, No respiratory distress, Breath sounds nml. negative: Wheezes, Rales, Rhonchi Cardiovascular: positive: Regular rate & rhythm, No murmur, No gallop. negative: Irregularly irregular, Extrasystoles, Tachycardia, Bradycardia, JVD present, Systolic murmur, Diastolic murmur Peripheral Pulses: positive: 2+ Abdomen: positive: Non-tender, No organomegaly, Nml bowel sounds, No distention. negative: Tenderness, Guarding, Rebound Back: positive: Nml inspection. negative: CVA tenderness (R), CVA tenderness (L) Skin: positive: Color nml, No rash, Warm, Dry. negative: Cyanosis, Diaphoresis, Pallor Extremities: positive: Non-tender, Full ROM, Nml appearance. negative: Calf tenderness, Freeman's sign/cords Neurologic/Psychiatric: positive: Oriented x3, Sensation nml. negative: Weakness, Sensory loss, Facial droop, Slurred/abnml speech - LABS Result Diagrams: 09/14/19 05:50 09/14/19 05:50 - SEPSIS Current Stage of Sepsis: Ruled out - FOLLOW UP Follow Up: pt may followup PCP when pt is arrival to [facility], followup urologist as out-pt, and followup PT/OT training. - TIME SPENT Time Spent in Discharge (Minutes): 50
== END 2019-09-14 13:45 | disposition home health service (06) | DRG 690 ==
LOC: EDUNIT# → ED 09:11 → MS2 13:56 → OBSVTOIN 09-12 16:03
PROVIDERS: ADMIT Nurse Practitioner Gerontology; ATTEND Nurse Practitioner Gerontology
DX: N30.00 Acute cystitis without hematuria (principal); R44.1 Visual hallucinations; R44.2 Other hallucinations; E87.1 Hypo-osmolality and hyponatremia; R41.0 Disorientation, unspecified; K59.09 Other constipation; I12.9 Hypertensive chronic kidney disease with stage 1 through stage 4 chronic kidney disease, or unspecified chronic kidney disease; N18.9 Chronic kidney disease, unspecified; B95.8 Unspecified staphylococcus as the cause of diseases classified elsewhere; Z85.51 Personal history of malignant neoplasm of bladder; Z79.899 Other long term (current) drug therapy; Z66 Do not resuscitate; Z93.6 Other artificial openings of urinary tract status; Z93.2 Ileostomy status; Z85.46 Personal history of malignant neoplasm of prostate; Z90.49 Acquired absence of other specified parts of digestive tract
CPT/HCPCS: 36415; 71045; 80048; 80053; 81001; 83690; 83735; 83880; 84439; 84443; 84484; 85025; 87077; 87086; 93005; 96365; 96372; 97110; 97116; 97161; 97164; 97165; 99284; 99285; A9270; G0378; J1650; 80306; 80320; 81003

== ENCOUNTER 2019-10-13 08:11 | Outpatient (CLI) | payer MEDICARE, OTHER | END 2019-10-13 08:12 | disposition E | LOC: EMS 08:11 | PROVIDERS: ATTEND Surgery ==